=== PATIENT | male | born 1960 | race Caucasian/White ===

== ENCOUNTER 2023-09-23 08:14 | Outpatient (CLI) | payer MEDICARE, OTHER, SELFPAY ==
--- NOTE | ~2023-09-23 | XR_ITS ---
Right Hand Technique: PA, oblique, and lateral views were obtained. Clinical History: Pain Findings: No acute fracture or dislocation is seen. Osseous alignment is anatomic. Joint spaces are p reserved. Soft tissues are unremarkable. Impression: Unremarkable right hand. Reviewed, dictated and finalized at location M. Impression: Unremarkable right hand.
--- NOTE | ~2023-09-23 | XR_ITS ---
Left Hand Technique: PA, oblique, and lateral views were obtained. Clinical History: Pain Findings: No acute fracture or dislocation is seen. Osseous alignment is anatomic. Joint spaces are p reserved. Soft tissues are unremarkable. Impression: Unremarkable left hand. Reviewed, dictated and finalized at location M. Impression: Unremarkable left hand.
[2023-09-23 10:50] LABS: Erythrocyte Sedimentation Rate 17 mm/hr (0-20)
[2023-09-23 21:57] LABS: Rheumatoid Factor < 12.0 IU/ML (<12)
[2023-09-27 11:18] LABS: Anti Nuclear Antibody Pattern Nuclear, Homogeneous
== END 2023-09-23 08:15 | disposition home or self-care (01) ==
PROVIDERS: PCP Emergency Medicine; Visit Provider Emergency Medicine
DX: M25.541 Pain in joints of right hand (principal); M25.542 Pain in joints of left hand
CPT/HCPCS: 36415; 73130; 85652; 86038; 86039; 86430

== ENCOUNTER 2023-10-19 08:53 | Outpatient (CLI) | payer MEDICARE, OTHER, SELFPAY ==
--- NOTE | ~2023-10-19 | XR_ITS ---
Left foot Technique: AP, oblique, and lateral views were obtained. Clinical History: Toe injury Findings: There is acute minimally displaced fracture at the proximal shaft of the fifth proximal pha lanx. No other fracture identified.. Joint spaces are preserved without erosive or degenerative gomez e. Soft tissues are unremarkable. Impression: Acute fracture the fifth proximal phalanx, as detailed above. Reviewed, dictated and finalized at location . Impression: Acute fracture the fifth proximal phalanx, as detailed above.
== END 2023-10-19 08:54 | disposition home or self-care (01) ==
PROVIDERS: PCP Emergency Medicine; Visit Provider Emergency Medicine
DX: S92.512A Displaced fracture of proximal phalanx of left lesser toe(s), initial encounter for closed fracture (principal); X58.XXXA Exposure to other specified factors, initial encounter
CPT/HCPCS: 73630

== ENCOUNTER 2023-11-26 10:45 | Outpatient (CLI) | payer MEDICARE, OTHER, SELFPAY ==
--- NOTE | ~2023-11-26 | XR_ITS ---
EXAM: XR foot LT min 3V DATE: 11/26/2023 11:08 HISTORY: EVAL OF FRACTURE OF L 5TH TOE . COMPARISON: 10/19/2023. FINDINGS: Normal mineralization. Redemonstration of the comminuted intra-articular fracture of the p roximal aspect of the left proximal fifth phalange with early interval healing change and no change o f alignment. No new acute fracture or dislocation. No lytic or blastic lesion. Mild scattered degener ative change, most notably at the first MTP joint. No erosion or periosteal change. Soft tissues with in normal limits. IMPRESSION: Comminuted, likely intra-articular fracture of the proximal aspect of the left fifth prox imal phalange, in stable alignment, with early interval healing changes. Reviewed, dictated and finalized at location K. IMPRESSION: Comminuted, likely intra-articular fracture of the proximal aspect of the left fifth proximal phalange, in stable alignment, with early interval h ealing changes.
== END 2023-11-26 10:46 | disposition home or self-care (01) ==
LOC: ANHIMG 10:49
PROVIDERS: PCP Emergency Medicine; Visit Provider Emergency Medicine
DX: S92.512A Displaced fracture of proximal phalanx of left lesser toe(s), initial encounter for closed fracture (principal)
CPT/HCPCS: 73630

== ENCOUNTER 2024-06-26 08:31 | Outpatient (CLI) | payer MEDICARE, OTHER, SELFPAY ==
--- OUTSIDE RECORDS SUMMARY | 2024-06-26 08:39 | XMS_ITS | Clinical Summary ---
Author Organization [facility] [employer] Address [address] [place] [address] Care Team Providers Care Java Programming Professor Name Role Phone Unavailable Primary Care Provider Unavailabl e Source Comments [facility],non-owned Affiliates and Associated Physician Practices is amultiple site organization consisting of ambulatory clinics and hospital sitesin [place], [place], [place] and [place]. This disclosure is being madepursuant to the Care Everywhere program and may not contain all information available regarding this patient. Last updated 17.[facility] [employer] Allergies No known active allergies Medications * Be aware that medications may not be up to date on this document. Alwaysverify current medications with the patient. acetaminophen-c odeine (Tylenol #3) 300-30 MG tablet 03/14/2023 Active cetirizine (ZyrTEC) 10 MG tablet May cause drowsiness.Ob tain advice for OTCs. 04/28/2023 Active vitamin D3 (Cholecalcifero l) 25 MCG (1000 UNITS) tablet Take 2 (two) tablets by mouth once daily Active colesevelam (Welchol) 625 MG tablet Take with food/milk.Farhat e or use exactly as directed. 05/13/2023 Active esomeprazole (NexIUM) 40 MG capsule Take 1 (one) capsule by mouth once daily 05/24/2023 Active glucosamine 500 MG capsule Take 1,500 (one thousand five hundred) mg by mouth once daily Active Active Problems Problem Noted Date Diagnosed Date Bilateral hand pain (onset 06/2023) 10/06/2023 Overview (10/06/2023): Suspect early carpal tunnel syndrome. Recommend use of wrist splints as much as possible for 4 weeks. If not better then will order NCV nerve testing. Social History Tobacco Use Types Packs/Day Years Used Date Smoking Tobacco: Never Smokeless Tobacco: Never Tobacco Cessation:Counseling Given: Not Answered Alcohol Use Standard Drinks/Week Comments Not Currently 0 (1 standard drink = 0.6 oz pur e alcohol) Sex and Gender Information Value Date Recorded Sex Assigned at Not on file Legal Sex Male 2:22 PM CDT Gender Identity Not on file Sexual Orientation Not on file Last Filed Vital Signs Vital Sign Reading Time Taken Comments Blood Pressure 118/74 10/06/2023 12:39 PM CDT Pulse 74 10/06/2023 12:39 PM CDT Temperature - - Respiratory Rate - - Oxygen Saturation 98% 10/06/2023 12:39 PM CDT Inhaled Oxygen Concentration - - Weight 114.3 kg (252 lb) 10/06/2023 12:39 PM CDT Height 175.3 cm (5' 9 ) 10/06/2023 12:39 PM CDT Body Mass Index 37.21 10/06/2023 12:39 PM CDT Plan of Treatment Health Maintenance Due Date Last Done Comments COLOGUARD (AGES 45-75) - COLON CA SCREENING 1958 COLON MONITORING 1958 COLONOSCOPY - COLON CA SCREENING 1958 CT COLONOGRAPHY - COLON CA SCREENING 1960 Colorectal Cancer Screening 1958 FIT - COLON CA SCREENING 1958 FLEX SIG - COLON CA SCREENING 1958 LIPID TESTING 1958 MEDICARE AWV 12 MONTHS 1958 HIV SCREENING 1973 HEPATITIS C SCREENING 06/28/1976 DTAP/TDAP/TD VACCINES (1 - Tdap) 1977 PNEUMOCOCCAL VACCINE 50+ (1 of 1 - PCV) 2008 ZOSTER VACCINE (1 of 2) 2008 SCREENING FOR DIABETES 10/06/2023 COVID-19 VACCINE ( - season) 2023 11/06/2021, 05/07/2020, 04/15/2020 DEPRESSION SCREENING 02/15/2024 INFLUENZA VACCINE (Season Ended) 2024 03/06/2023, 11/16/2021, 11/22/2020, Additional history exists Respiratory Syncytial Virus (RSV) Vaccine Pt: or over 60 yrs (1 - 1-dose 75+ series) 2033 HEPATITIS B VACCINE Aged Out No longe r eligible based on patient's age to complete this topic HIB VACCINE Aged Out No longer eligi ble based on patient's age to complete this topic HPV VACCINE Aged Out No longer eligi ble based on patient's age to complete this topic MENINGOCOCCAL (Group B) VACCINE SHARED DECISION-MAKING Aged Out No longer eligible based on patient's age to complete this topic MENINGOCOCCAL GROUPS A/C/Y/W VACCINE Aged Out No longer eligible based on patient's age to complete this topic Insurance
--- OUTSIDE RECORDS SUMMARY | 2024-06-26 08:39 | XMS_ITS | Clinical Summary ---
Author Organization [facility] [place] [facility] Address [address] [place] [address] Care Team Providers Care Creche Attendant Name Role Phone Jesús Lara MD Primary Care Provider [phone] Allergies No known active allergies Medications No known medications Active Problems No known active problems Surgical History Surgery Date Site/Laterality Comments GALLBLADDER SURGERY Medical History Medical History Date Comments Gastric reflux Osteoarthritis Neuropathy Social History Tobacco Use Types Packs/Day Years Used Date Smoking Tobacco: Unknown Sex and Gender Information Value Date Recorded Sex Assigned at Not on file Legal Sex Male 4:22 AM CONSUMER LOAN OFFICER Gender Identity Not on file Sexual Orientation Not on file Obstetrics History Last Filed Vital Signs Vital Sign Reading Time Taken Comments Blood Pressure 122/74 08/12/2016 12:21 PM CDT Pulse 64 08/12/2016 12:21 PM CDT Temperature 36.4 C (97.6 F) 08/12/2016 12:21 PM CDT Respiratory Rate - - Oxygen Saturation 99% 08/12/2016 12:21 PM CDT Inhaled Oxygen Concentration - - Weight 115.7 kg (255 lb) 02/27/2024 11:30 AM CONSUMER LOAN OFFICER Height 175.3 cm (5' 9 ) 02/27/2024 11:30 AM CONSUMER LOAN OFFICER Body Mass Index 37.66 02/27/2024 11:30 AM CONSUMER LOAN OFFICER Plan of Treatment Health Maintenance Due Date Last Done Comments Colon Cancer Screening-Colonoscopy 1958 Depression Screening 1958 Fall Risk Assessment 1958 Hepatitis C Screening 1958 Prostate Cancer Screening-PSA 1958 DTaP/Tdap/Td Vaccine (1 - Tdap) 1969 Hepatitis B Screening 1976 Pneumococcal vaccine 65+ (1 of 1 - PCV) 2008 Abdominal Aortic Aneurysm (A AA) Screen 07/04/2023 03/17/2020 Well Visit 65+ 07/04/2023 Covid-19 Vaccine (6 - 2023-2 5 season) 2024 12/12/2023, 03/06/2023, 12/19/2020, Additional history exists Zoster Vaccine Completed 12/17/2018, 07/31/2018 Influenza Vaccine Completed 12/12/2023, , 11/16/2021, Additional history exists Insurance MEDICARE [facility] [employer] [facility] Care Teams Creche Attendant Relationship Specialty Start Date End Date Jesús Lara MD [address] [place] [address] PCP - General Emergency Medicine 11/29/23
--- OUTSIDE RECORDS SUMMARY | 2024-06-26 08:39 | XMS_ITS | Referral Summary ---
Author Organization [facility] [place] [facility] Address [address] [place] [address] Care Team Providers Care Pbx Installer Name Role Phone Jesús Lara MD Primary Care Provider [phone] Allergies No known active allergies Medications No known medications Active Problems No known active problems Social History Tobacco Use Types Packs/Day Years Used Date Smoking Tobacco: Unknown Sex and Gender Information Value Date Recorded Sex Assigned at Not on file Legal Sex Male 4:22 AM PATTERN WEAVER Gender Identity Not on file Sexual Orientation [...] 115.7 kg (255 lb) 02/27/2024 11:30 AM PATTERN WEAVER Height 175.3 cm (5' 9 ) 02/27/2024 11:30 AM PATTERN WEAVER Body Mass Index 37.66 02/27/2024 11:30 AM PATTERN WEAVER Plan of Treatment Not on file Insurance MEDICARE FOR LIFE Care Teams Pbx Installer Relationship Specialty Start Date End Date Jesús Lara MD [address] [place] [address] PCP - General Emergency Medicine 11/29/23
--- OUTSIDE RECORDS SUMMARY | 2024-06-26 08:39 | XMS_ITS | Clinical Summary ---
Author Organization [facility] Address [address] [place] [address] Care Team Providers Care Purifying Plant Operator Name Role Phone Jhony Ramos MD Primary Care Provider Allergies No known active allergies Medications Azelastine HCl 0.05 % Solution Place 1 drop into both eyes daily. 8 Active WELCHOL 625 MG tablet Take 1,250 mg by mouth 3 (three) times daily with meals. 8 Active NEXIUM 20 MG capsule Take 40 mg by mouth every morning before breakfast. 8 Active latanoprost 0.005 % ophthalmic solution Place 1 drop into both eyes nightly at bedtime. 8 Active triamcinolone 0.1 % creamIndicatio ns:NEW RX--HAS NOT PICKED UP 8 Active vitamin D3, cholecalcifero l, 1000 UNIT Tab tablet Take 2,000 Units by mouth daily. Active Vitamins-Lipot ropics (LIPOFLAVONOID OR) Take 2 tablets by mouth 3 (three) times daily with meals. Active Misc Natural Products (OSTEO BI-FLEX ADV JOINT SHIELD OR) Take 2 tablets by mouth daily with breakfast. Active glucosamine 500 MG capsule Take 1,500 mg by mouth daily with supper. Active probiotic capsule Take 1 capsule by mouth daily with breakfast. Active midodrine 5 MG tablet Take 5 mg by mouth see administration instructions. GIVE ONE TAB AT ONSET OF MIGRAINE, MAY TAKE AN ADDITIONAL 5 MG. ONE HOUR LATER. MAX DOSE 6 TABS PER DAY. Active albuterol sulfate HFA 108 (90 Base) MCG/ACT inhaler Inhale 2 puffs into the lungs every 6 (six) hours as needed for Wheezing or Shortness of breath. 18 g Active Family History Medical History Relation Comments Cancer Father Stroke Mother Relation Status Comments Father Mother Social History Tobacco Use Types Packs/Day Years Used Date Smoking Tobacco: Never Smokeless Tobacco: Never Alcohol Use Standard Drinks/Week Comments Not Currently 0 (1 standard drink = 0.6 oz pur e alcohol) Sex and Gender Information Value Date Recorded Sex Assigned at Not on file Legal Sex Male 9:15 PM CDT Gender Identity Not on file Sexual Orientation Not on file Last Filed Vital Signs Vital Sign Reading Time Taken Comments Blood Pressure 142/86 07/28/2021 12:23 PM CDT Pulse 72 07/28/2021 12:23 PM CDT Temperature 36.6 C (97.8 F) 07/28/2021 12:23 PM CDT Respiratory Rate 16 07/28/2021 12:23 PM CDT Oxygen Saturation 98% 07/28/2021 12:23 PM CDT Inhaled Oxygen Concentration - - Weight 115.2 kg (254 lb) 04/17/2020 2:49 PM DIVISION CHAIR Height 175.3 cm (5' 9 ) 04/17/2020 2:49 PM DIVISION CHAIR Body Mass Index 37.51 04/17/2020 2:49 PM DIVISION CHAIR Plan of Treatment Health Maintenance Due Date Last Done Comments Colorectal Cancer Screening Colonoscopy (10 Years) 1958 Hepatitis C 1976 DTaP, Tdap and Td Vaccines ( 1 - Tdap) 1977 Pneumococcal Vaccine: 50+ Years (1 of 1 - PCV) 2008 COVID-19 Vaccine ( - 2023-2 5 season) 2023 RSV Immunization or 60+ Years (1 - 1-dose 75+ series) 2033 Zoster Vaccines Completed 12/17/2018, 07/31/2018 Meningococcal B Vaccine Aged Out No l onger eligible based on patient's age to complete this topic Meningococcal Vaccine Aged Out No justus jackeline eligible based on patient's age to complete this topic RSV Immunizations Under 20 Months Aged Out No longer eligible b ased on patient's age to complete this topic Insurance Care Teams Purifying Plant Operator Relationship Specialty Start Date End Date Jhony Ramos MD [address] [address] [place] [id number] PCP - General FAMILY PRACTICE 03/05/20
[2024-06-26 09:37] LABS: Hematocrit 44.9 % (42.0-52.0); Hemoglobin 14.9 g/dL (14.0-18.0); Mean Corpuscular HGB Conc 33.2 g/dl (32-36); Mean Corpuscular Hemoglobin 29.4 pg (26-34); Mean Corpuscular Volume 88.7 fl (80-100); Mean Platelet Volume 9.4 fl (7.4-10.4); Platelet Count Result 162 k/mm3 (150-375); Red Blood Count 5.06 M/mm3 (4.6-6.20); Red Cell Distribution Width 13.9 % (11.5-14.5); White Blood Count 8.8 K/mm3 (4.5-10.0)
[2024-06-26 09:40] LABS: Add Urine Microscopic? NO; Appearance Urine Clear (Clear); Bilirubin Urine Negative (Negative); Blood Urine Negative (Negative); Color Urine Yellow (Yellow); Glucose Urine UA Negative (Negative); Ketones Urine Negative (Negative); Leukocyte Esterase Ur Negative LEU/UL (Negative); Nitrate Urine Negative (Negative); Protein Urine Negative (Negative); Specific Grav Ur 1.006 (1.001-1.035); Urobilinogen Urine 0.2 mg/dL (<2.0)
[2024-06-26 10:08] LABS: Hemoglobin A1C 5.1 % (<5.7)
[2024-06-26 10:26] LABS: Rubella IgG Antibody 27.9 IU/ML
[2024-06-26 10:28] LABS: MALB Creatinine Ratio < 10.9 mg/g (0-30); Microalbumin Urine Random < 6.0 mg/L (0-16.7)
[2024-06-26 11:08] LABS: Alanine Aminotransferase 31 U/L (6-50); Albumin Level 4.1 g/dL (3.5-5.1); Alkaline Phosphatase 75 U/L (38-126); Anion Gap 7 mmol/L (4-12); Aspartate Amino Transferase 38 U/L (17-59); Bilirubin,Total 1.4 mg/dL (0.2-1.3); Blood Urea Nitrogen 14 mg/dL (9-20); Calcium 8.9 mg/dL (8.4-10.2); Carbon Dioxide 24 mmol/L (22-30); Chloride 107 mmol/L (98-107); Cholesterol 171 mg/dL (0-200); Estimated Glomerular Filt Rate > 60; Glucose 103 mg/dL (65-110); HDL Direct 25 mg/dL; Potassium 3.9 mmol/L (3.4-5.0); Sodium 138 mmol/L (137-145); Triglycerides 228 mg/dL (<150)
[2024-06-26 11:19] LABS: LDL Cholesterol Direct 89 mg/dL
[2024-06-26 11:24] LABS: Free T4 Free Thyroxine 1.19 ng/dL (0.78-2.19)
[2024-06-26 11:39] LABS: Thyroid Stimulating Hormone 0.875 uIU/mL (0.465-4.680)
[2024-06-26 12:41] LABS: Prostate Specific Antigen 0.3 ng/mL (< OR = 4.0)
[2024-07-01 12:24] LABS: Testosterone Free 26.5 pg/mL (35.0-155.0); Testosterone Total 114 ng/dL (250-1100)
== END 2024-06-26 08:32 | disposition home or self-care (01) ==
PROVIDERS: PCP Emergency Medicine; Visit Provider Emergency Medicine
DX: E78.5 Hyperlipidemia, unspecified (principal); Z12.5 Encounter for screening for malignant neoplasm of prostate
CPT/HCPCS: 36415; 80053; 80061; 81003; 82043; 83036; 84153; 84402; 84403; 84439; 84443; 85027; 86735; 86762; 86765; G0103

== ENCOUNTER 2025-02-08 05:53 | Outpatient (CLI) | payer MEDICARE, OTHER, SELFPAY ==
--- OUTSIDE RECORDS SUMMARY | 2025-02-08 05:58 | XMS_ITS | Clinical Summary ---
Author Organization [facility] Address [address] [place] [address] Care Team Providers Care Machine Attendant Name Role Phone Jesús Lara MD Primary Care Provider [phone] Allergies No known active allergies Medications No known medications Active Problems No known active problems Surgical History Surgery Date Site/Laterality Comments GALLBLADDER SURGERY Medical History Medical History Date Comments Gastric reflux Osteoarthritis Neuropathy Social History Tobacco Use Types Packs/Day Years Used Date Smoking Tobacco: Unknown Sex and Gender Information Value Date Recorded Sex Assigned at Not on file Legal Sex Male 4:22 AM DOCUMENT PROCESSOR Gender Identity Not on file Sexual Orientation [...] 115.7 kg (255 lb) 02/27/2024 11:30 AM DOCUMENT PROCESSOR Height 175.3 cm (5' 9) 02/27/2024 11:30 AM DOCUMENT PROCESSOR Body Mass Index 37.66 02/27/2024 11:30 AM DOCUMENT PROCESSOR Plan of Treatment Health Maintenance Due Date [...] Visit 65+ 07/04/2023 Covid-19 Vaccine (6 - 2024-2 6 season) 2024 12/12/2023, 03/06/2023, 12/19/2020, Additional history exists Influenza Vaccine (#1) 2024 , 03/06/2023, 11/16/2021, Additional history exists Zoster Vaccine Completed 12/17/2018, 07/31/2018 Insurance MEDICARE [facility] [facility] Care Teams Machine Attendant Relationship Specialty Start Date End Date Jesús Lara MD [address] [place] [address] PCP - General Emergency Medicine 11/29/23
--- OUTSIDE RECORDS SUMMARY | 2025-02-08 05:58 | XMS_ITS | Clinical Summary ---
Author Organization [facility] Address [address] [place] [address] Care Team Providers Care Dining Room Manager Name Role Phone Unavailable Primary Care Provider Unavailabl e Source Comments [facility],non-owned Affiliates and Associated Physician Practices is amultiple site organization consisting of ambulatory clinics and hospital sitesin [place] and [place]. This disclosure is being madepursuant to the Care Everywhere program and may not contain all information available regarding this patient. Last updated 17.[facility] Allergies No known active allergies Medications * [...] 12:39 PM CDT Height 175.3 cm (5' 9) 10/06/2023 12:39 PM CDT Body Mass Index [...] TESTING 1960 MEDICARE AWV 12 MONTHS 1958 HEPATITIS C SCREENING 06/28/1976 DTAP/TDAP/TD VACCINES (1 - Tdap) 1977 PNEUMOCOCCAL VACCINE 50+ (1 of 1 - PCV) 2008 ZOSTER VACCINE (1 of 2) 2008 SCREENING FOR DIABETES 10/06/2023 DEPRESSION SCREENING 02/15/2024 COVID-19 VACCINE ( - 2024- season) 2024 11/06/2021, 05/07/2020, 04/15/2020 INFLUENZA VACCINE (#1) 2024 , 11/16/2021, 11/22/2020, Additional history exists Respiratory Syncytial [...] patient's age to complete this topic Insurance MEDICARE
--- OUTSIDE RECORDS SUMMARY | 2025-02-08 05:58 | XMS_ITS | Clinical Summary ---
Author Organization [facility] Address [address] [place] [address] Care Team Providers Care Test Borer Name Role Phone Jhony Ramos MD Primary [...] or Shortness of breath. 18 g Active Encounters Date Type Department Care Team Description 12/22/2024 6:43 AM SHOOTER'S HELPER - 12/22/2024 11:59 PM SHOOTER'S HELPER Hospital Encounter [facility] [place] [address] Natasha Land MD Discharge Disposition: Home or Self Care (Routine Discharge) 12/22/2024 Travel from Last 3 Months Family History Medical History Relation Comments Cancer Father Stroke Mother Relation Status Comments Father Mother Social History Tobacco Use Types Packs/Day Years Used Date Smoking Tobacco: Never Smokeless Tobacco: Never Alcohol Use Standard Drinks/Week Comments Not Currently 0 (1 standard drink = 0.6 oz pur e alcohol) Sex and Gender Information Value Date Recorded Sex Assigned at Male 07/10/2024 6:57 AM CDT Legal Sex Male 9:15 PM CDT Gender [...] 115.2 kg (254 lb) 04/17/2020 2:49 PM SHOOTER'S HELPER Height 175.3 cm (5' 9) 04/17/2020 2:49 PM SHOOTER'S HELPER Body Mass Index 37.51 04/17/2020 2:49 PM SHOOTER'S HELPER Plan of Treatment Health Maintenance Due Date Last Done Comments Colorectal Cancer Screening Colonoscopy (10 Years) 1960 Hepatitis C 1976 DTaP, Tdap and Td Vaccines (1 - Tdap) 1977 Hepatitis A Vaccines (1 of 2 - Risk 2-dose series) 1977 Pneumococcal Vaccine: 50+ Years (1 of 1 - PCV) 2008 RSV Immunization or 60+ Years (1 - Risk 60-74 years 1-dose series) 2018 Annual Medicare Wellness Visit 07/04/2023 COVID-19 Vaccine ( season) 2024 12/12/2023, 03/06/2023, 11/06/2021, Additional history exists Influenza Adult (#1) 2024 12/12/2023, 03/06/2023, 11/16/2021, Additional history exists Zoster Vaccines Completed 12/17/2018, 07/31/2018 Meningococcal B Vaccine Aged Out No l onger eligible based on patient's age to complete this topic Meningococcal Vaccine Aged Out No justus jackeline eligible based on patient's age to complete this topic RSV Immunizations Under 20 Months Aged Out No longer eligible based on patient's age to complete this topic Procedures Procedure Name Priority Date/Time Associated Diagnosis Comments MRI ABD WWO CON Routine 12/22/2024 7:38 AM SHOOTER'S HELPER Liver lesion Abnormal finding on imaging of liver from Last 3 Months Results * MRI ABD WWO CON (12/22/2024 7:38 AM SHOOTER'S HELPER) Anatomical Region Laterality Modality Abdomen Magnetic Resonan ce 12/30/2024 7:03 PM SHOOTER'S HELPER Impressions 12/30/2024 7:19 PM SHOOTER'S HELPER IMPRESSION: 1. No significant change in hepatic cysts dating back to 2020. No further imaging follow-up is indicated. 2. Hepatic steatosis. 3. Hepatosplenomegaly. Referred By: NATASHA LAND Interpreted By: Nanda Lund DO, 12/30/2024 7:03 PM Narrative 12/30/2024 7:19 PM SHOOTER'S HELPER [facility] [address] [place], [place] [address] MRI ABD WWO CON: 12/22/2024 6:58 AM CLINICAL INFORMATION: Liver lesion COMPARISON: CT abdomen/pelvis with 03/17/2020. Technique: Multiplanar multisequence MR images of abdomen were obtained prior to and after administration of intravenous 20 mL Dotarem gadolinium contrast. FINDINGS: Lung bases: Grossly normal. Liver: Enlarged. Nonenhancing, septated hepatic cysts measuring up to 2.0 cm within the right hepatic dome and 6.5 cm within the left hepatic lobe (use measured 2.4 cm and 6.[address]). A couple of additional smaller, simple appearing, subcentimeter, nonenhancing cysts. No diffusion restriction. Significant signal dropout on out of phase imaging. Biliary tree: No intrahepatic biliary dilation. A couple of dilated biliary ducts peripheral to large left cyst. Common bile duct measures 0.8 cm. No filling defects in the biliary tree. Gallbladder: Post cholecystectomy. Pancreas: Normal. Spleen: Enlarged measuring 16.6 cm on axial imaging. Right adrenal gland: Normal. Left adrenal gland: Normal. Right kidney: No hydronephrosis or hydroureter. Left kidney: No hydronephrosis or hydroureter. Vessels: No abdominal aortic aneurysm. Major veins of abdomen are patent. Lymphadenopathy: None. Free fluid: None. Bowel: No dilated bowel. Scattered diverticuli. Bones and soft tissues: Partially imaged, moderate sized fat-containing umbilical hernia Procedure Note Nanda Lund, - 12/30/[address] [address] MRI ABD WWO CON: 12/22/2024 6:58 AM CLINICAL INFORMATION: Liver lesion COMPARISON: CT abdomen/pelvis with 03/17/2020. Technique: Multiplanar multisequence MR images of abdomen were obtainedprior to and after administration of intravenous 20 mL Dotarem gadoliniumcontrast. FINDINGS: Lung bases: Grossly normal. Liver: Enlarged. Nonenhancing, septated hepatic cysts measuring up to 2.0cm within the right hepatic dome and 6.5 cm within the left hepatic lobe(use measured 2.4 cm and 6.[address]). A couple ofadditional smaller, simple appearing, subcentimeter, nonenhancing cysts.No diffusion restriction. Significant signal dropout on out of phaseimaging. Biliary tree: No intrahepatic biliary dilation. A couple of dilatedbiliary ducts peripheral to large left cyst. Common bile duct measures0.8 cm. No filling defects in the biliary tree. Gallbladder: Post cholecystectomy. Pancreas: Normal. Spleen: Enlarged measuring 16.6 cm on axial imaging. Right adrenal gland: Normal. Left adrenal gland: Normal. Right kidney: No hydronephrosis or hydroureter. Left kidney: No hydronephrosis or hydroureter. Vessels: No abdominal aortic aneurysm. Major veins of abdomen arepatent. Lymphadenopathy: None. Free fluid: None. Bowel: No dilated bowel. Scattered diverticuli. Bones and soft tissues: Partially imaged, moderate sized fat-containingumbilical hernia IMPRESSION: 1. No significant change in hepatic cysts dating back to 2020. Nofurther imaging follow-up is indicated. 2. Hepatic steatosis. 3. Hepatosplenomegaly. Referred By: NATASHA LAND Interpreted By: Nanda Lund DO, 12/30/2024 7:03 PM us Natasah Land MD MRI Final Result from Last 3 Months Insurance MEDICARE [facility] [place] Care Teams Test Borer Relationship Specialty Start Date End Date Jhony Ramos MD 3 [facility] [address] [place] [address] PCP - General FAMILY PRACTICE 03/05/20
[2025-02-08 10:16] LABS: Hematocrit 45.9 % (42.0-52.0); Hemoglobin 15.6 g/dL (14.0-18.0); Immature Granulocyte Percent A 0.5 % (0-0.5); Lymphocytes Absolute Auto 1.35 K/mm3 (0.9-3.2); Mean Corpuscular HGB Conc 34.0 g/dl (32-36); Mean Corpuscular Hemoglobin 29.7 pg (26-34); Mean Corpuscular Volume 87.4 fl (80-100); Nucleated Red Blood Cells Absolute Auto 0.000 K/mm3 (0.0-0.012); Nucleated Red Blood Cells Perc 0.0 % (0.0-0.2); Platelet Count Result 168 k/mm3 (150-375); Red Blood Count 5.25 M/mm3 (4.6-6.20); White Blood Count 9.4 K/mm3 (4.5-10.0)
== END 2025-02-08 05:54 | disposition home or self-care (01) ==
PROVIDERS: PCP Emergency Medicine; Visit Provider Surgery
DX: K46.9 Unspecified abdominal hernia without obstruction or gangrene (principal); K43.2 Incisional hernia without obstruction or gangrene
CPT/HCPCS: 36415; 85025; 86850; 86900; 86901

== ENCOUNTER 2025-02-13 00:36 | Day surgery (SDC) | payer MEDICARE, OTHER, SELFPAY ==
--- OUTSIDE RECORDS SUMMARY | 2024-06-15 09:00 | XMS_ITS ---
Author Name [facility] [place] [facility] [place] Address [address] [place] [address] Care Team Providers Care Telecommunicator Supervisor Name Role Phone HEDY BYERS Primary Care Provider Unavailabl e Insurance Providers: All historical and current Section Date Range: From patient's date of to the date document was created. This section includes the names of all active insurance providers for the patient. Insurance Provider Type of Coverage Plan Name Start of Policy Coverage End of Policy Coverage Group Number Member ID Insurance Provider's Telephone Number Policy Melendez's Name Patient's Relationship to Policy Melendez MEDICARE (WNR) MEDICARE (M) PART B June 15, 2023 PART B [id number] Wilmar LAMAS PATIENT MEDICARE (WNR) MEDICARE (M) PART A June 15, 2023 PART A [id number] Wilmar LAMAS PATIENT Selected Encounter This section includes the information on record at [place] for the Encounter. 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 Date/Time Primary/Secondary Diagnosis Diagnosis Name Provider Source June 15, 2024 03:13 PM PRIMARY Pigmentary glaucoma, right eye, mild stage SIXTO VIEYRA SA Carlos CASAREZ [facility] Plan of Treatment: Future Appointments (+ 6 months) and Future Tests (+/- 45 days) The Plan of Treatment section includes future care activities for the patient from all [place] treatmentfacilities. This section includes future appointments and future orders which are active, pending or scheduled. Future Appointments This section includes appointments that were scheduled to occur 6 months from the date of the Encounter, up to a maximum of 20 appointments. The data comes from all [place] treatment facilities. Appointment Date/Time Appointment Type Appointme nt Facility Name Aug 30, 2024 10:30 AM [facility]UL[facility]ORY [facility] Sep 19, 2024 03:30 PM AMBULATORY - MEDICINE [facility] Oct 12, 2024 11:00 AM AMBULATORY - SURGERY [facility] Nov 06, 2024 03:00 PM AMBULATORY - MEDICINE [facility] Dec 11, 2024 02:00 PM AMBULATORY - MEDICINE [facility] Encounter Notes: All associated encounter notes This section contains the clinical notes associated to the Encounter. Date/Time Encounter Note(s) Provider Source June 15, 2024 03:00 PM OPHTHALMOLOGY NOTE : LOCAL TITLE: OPHTHALMOLOGY NOTE ST STANDARD TITLE: OPHTHALMOLOGY NOTE DATE OF NOTE: JUNE 15, 2024@15:00 ENTRY DATE: JUNE 15, 2024@15:00:38 AUTHOR: VEE VIEYRA EXP COSIGNER: URGENCY: STATUS: COMPLETED TESTING OBTAINED: OCT complete OU (MACULA & ONH) Results located in Forum for provider review INITIAL EYE SCREEN LAST VISIT: 10/21/2023 CHIEF COMPLAINT: Pt state no new complaints. Here for DFEx and OCT. 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
--- OUTSIDE RECORDS SUMMARY | 2024-06-15 09:00 | XMS_ITS | Encounter Summary ---
Author Name [facility] Organization [facility] [place] Address [address] [place] [address] Care Team Providers Care Manager Building Name Role Phone HEDY BYERS Primary Care [...] PART B June 15, 2023 PART B [id number] Wilmar LAMAS PATIENT MEDICARE (WNR) MEDICARE (M) PART A June 15, 2023 PART A [id number] Wilmar LAMAS PATIENT Selected Encounter This section includes the information on record at [place] for the Encounter. Date/Time Encounter Type Encounter Description Reason Provider Source June 15, 2024 03:00 PM OFFICE O/P EST HI 40 MIN OPHTHALMOLOGY ICD-10-CM 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, left eye, severe stage GEORGE,ALIDA S B III [facility] Encounter Template Text not used by [facility] Assessments - Encounter Diagnoses This section includes the primary and secondary diagnoses documented for the Encounter. Date/Time Primary/Secondary Diagnosis Diagnosis Name Provider Source June 15, 2024 03:40 PM PRIMARY Pigmentary glaucoma, left eye, severe stage GEORGEROSI Becker III [facility] June 15, 2024 03:40 PM SECONDARY Age-related nuclear cataract, bilateral GEORGE,ROSI Segovia [facility] June 15, 2024 03:40 PM SECONDARY Pigmentary glaucoma, right eye, mild stage GEORGE,ROSI Segovia [facility] Plan of Treatment: Future Appointments (+ 6 months) and Future Tests (+/- 45 days) The Plan of Treatment section includes future care activities for the patient [facility] [place] [facility]. This section includes future appointments and future orders which are active, pending or scheduled. Future Appointments This section includes appointments that were scheduled to occur 6 months from the date of the Encounter, up to a maximum of 20 appointments. The data comes from all [place] treatment facilities. Appointment Date/Time Appointment Type Appointme nt Facility Name Aug 30, 2024 10:30 AM AM[facility]ULATORY - [facility] Sep 19, 2024 03:30 PM AMBULATORY - MEDIC[facility] Oct 12, 2024 11:00 AM AMBULATORY - SURGERY [facility] Nov 06, 2024 03:00 PM AMBULATORY - MEDICINE [facility] Dec 11, 2024 02:00 PM AMBULATORY - MEDICINE [facility] Encounter Notes: All associated encounter notes This section contains the clinical notes associated to the Encounter. Date/Time Encounter Note(s) Provider Source June 15, 2024 03:16 PM OPHTHALMOLOGY CONS ULT: LOCAL TITLE: OPHTHALMOLOGY CONSULT ST STANDARD TITLE: OPHTHALMOLOGY CONSULT DATE OF NOTE: JUNE 15, 2024@15:16 ENTRY DATE: JUNE 15, 2024@15:16:22 AUTHOR: ROSI GEORGE II EXP COSIGNER: URGENCY: STATUS: COMPLETED Glaucoma clinic Here for dilated exam Vision stable = Drops: Cosopt BID OS Xalatan OU qhs = NFL (05/06/23) OD: temporal thinning (++ superior and nasal blocking) avg ?? CDR: 0.74 OS: severe polar thinning>temporal thinning avg 57 CDR: 0.86 NFL (05/06/23) OD: Mild inf (y89) avg 77 CDR: 0.74 OS: severe polar thinning>temporal thinning avg 56 CDR: 0.83 ===== HVF (11/20/21): OD: nt OS: dense SA - stable compared to prior but progression compared to 2018 HVF(11/04/22): OD full OS stable SA HVF 10/21/23 OD: nonspecific central defects OS: dense superior arcuate; seems worse from 2022 but stable from 2021 - likely stable = BCVA: 20/25 OU Pupils Dilated OU (prior: 6-2; 6-3 (irregular) + APD OS) Tap Date: O.D. O.S. Time 08/29/17 21 23 1047 01/30/18 21 22 1100 - Xalatan, Timolol 10/30/18 22 22 1111 - Xalatan 01/15/20 23 23 1147 - XAL QHS ou 03/24/20 21 25 1115 - XAL QHS ou 07/31/21 18 17 1445 - XAL QHS ou 09/03/21 19 16 xal qhs ou SLT OS 10/15/21 12 19 xal qhs ou 11/20/21 20 17 xal qhs ou 02/12/22 15 16 xal qhs ou SLT OS 05/10/22 . 18 18 xal qhs ou OMNI-GATT OS 07/16/22 18 12 Xal OU+Cos2/Brim2 OS + PF OS BID 08/05/22 14 13 Xal OU+Cos2/Brim2 OS + PF OS BID 11/04/22 15 10 Xal OU, Cos2/Brim3 OS 12/31/22 14 9 Xal OU, Cos2/Brim3 OS 05/06/23 13.5 11 Xal OU, Cos2/brim3 OS 09/23/23 14 12 Xal OU, Cos2/brim3 OS 10/21/23 16 12 Xal OU, Cos2 OS 06/15/24 15 13 Xal OU, Cos2 OS SLEx: Conj: tr inj, ping OD 1-2+ inj, follicles, ping OS Cornea: K spindleOU OU AC: deep, quiet ou Iris: normal OD, oval irregular pupil OS; mid periphery TIDs OS>OD Lens: 1+ns OU DFEx CDR: 0.75/0.85 Minimal macular RPE changes OU Periphery OK (?low IT schisis OU) - no holes or breaks Mac OCT (06/15/24): wnl OU 63 year old with... # pigmentary glaucoma OS>OD: mild OD, severe OS - Pt [facility]rs[facility] - Self reports Tmax ~40. - CCT 554/557 by ant seg OCT 01/2018 - s/p SLT OS 09/03/21 and again 03/29/22 without meaningful effect - s/p OMNI-GATT OS 06/18/22 - IOP stable on 1 class OD and 4 classes OS - Possible brimonidine intolerance (irritation, but not well documented) - HVF with dense sup arcuate OS stable from 2021, full OD - RNFL stable today - CPM with lat qhs OU; Cos BID OS - Recheck in 4 months with HVF - If worse, may need filter (likely trab), but would re-try brimonidine (SLT not helpful in the past) before trab # Nuclear sclerosis OU - Reports glare and halos at night, but not interested in CE at this time - Follow # Allergic conjunctivitis - Continue ketotifen BID prn # RE/P - Keep current RTC 4 months with HVF /dustin/ Nely George III MD Staff Physician, Ophthalmology Signed: 06/15/2024 15:40 ROSI GEORGE III [facility]
--- OUTSIDE RECORDS SUMMARY | 2024-10-12 05:00 | XMS_ITS | Encounter Summary ---
Author Name [facility] [place] [facility] [place] Organization [facility] [facility] [place] Address [address] [place] [address] Care Team Providers Care Chief Console Operator Name Role Phone HEDY BYERS Primary Care [...] Policy Melendez MEDICARE (WNR) MEDICARE (M) PART A June 15, 2023 PART A [id number] Wilmar LAMAS PATIENT MEDICARE (WNR) MEDICARE (M) PART B June 15, 2023 PART B [id number] Wilmar LAMAS PATIENT Selected Encounter This section includes the information on record at [place] for the Encounter. 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 Date/Time Primary/Secondary Diagnosis Diagnosis Name Provider Source Oct 12, 2024 11:36 AM PRIMARY Pigmentary glaucoma, left eye, severe stage GEORGE,ROSI [facility] Oct 12, 2024 11:36 AM SECONDARY Pigmentary glaucoma, right eye, mild stage GEORGE,ROSI [facility] Plan of Treatment: Future Appointments (+ 6 months) and Future Tests (+/- 45 days) The Plan of Treatment section includes future care activities for the patient from all [place] [facility]facild[facility]. This section includes future appointments and future orders which are active, pending or scheduled. Future Appointments This section includes appointments that were scheduled to occur 6 months from the date of the Encounter, up to a maximum of 20 appointments. The data comes from all [facility]. Appointment Date/Time Appointment Type Appointme nt Facility Name Nov 06, 2024 03:00 PM AMBULATORY - MEDICINE [facility] Dec 11, 2024 02:00 PM AMBULATORY - MEDICINE [facility] Jan 07, 2025 02:00 PM AMBULATORY - MEDICINE [facility] Feb 25, 2025 10:00 AM AMBULATORY - MEDICINE [facility] Apr 05, 2025 01:00 PM AMBULATORY - MEDICINE [facility] Apr 11, 2025 01:00 PM AMBULATORY - SURGERY [facility] Active, Pending, and Scheduled Orders This section includes a listing of several types of active, pending, and scheduled orders, including clinic medications orders, diagnostic test orders, procedure orders and consult orders; where the start date of the order is 45 days before the date of the Encounter or 45 days after the date of theEncounter. The data comes from all [facility]. Test Date/Time Test Type Test Details Facility Name Sep 19, 2024 12:00 AM Laboratory - Chemistry Order PROST. SPECIFIC AG.(PB-STL) GOLD/RED SST SERUM [facility] Sep 19, 2024 12:00 AM Laboratory - Chemistry Order [id number] BLOOD [facility] Sep 19, 2024 12:00 AM Laboratory - Chemistry Order TSH ([place]-PB) GOLD/RED SST [facility] Sep 19, 2024 12:00 AM Laboratory - Chemistry Order COMPREHENSIVE METABOLIC PANEL GREEN LI/HEP BLD/PLAS PLASMA SP [facility] Sep 19, 2024 12:00 AM Laboratory - Chemistry Order CBC BLOOD SP [facility] Sep 19, 2024 12:00 AM Laboratory - Chemistry Order LIPID PANEL (STL) GREEN LI/HEP BLD/PLAS PLASMA SP ONCE [facility] Encounter Notes: All associated encounter notes This section contains the clinical notes associated to the Encounter. Date/Time Encounter Note(s) Provider Source Oct 12, 2024 11:10 AM OPHTHALMOLOGY NOTE : LOCAL TITLE: OPHTHALMOLOGY NOTE STL STANDARD TITLE: OPHTHALMOLOGY NOTE DATE OF NOTE: OCT 12, 2024@11:10 ENTRY DATE: OCT 12, 2024@11:11 AUTHOR: ROSI GEORGE II EXP COSIGNER: URGENCY: STATUS: COMPLETED Glaucoma clinic Here for F Vision stable = Drops: Cosopt BID OS Xalatan OU qhs Olopatadine PRN = NFL (05/06/23) OD: temporal thinning (++ [...] likely stable = BCVA: 20/25 OU Pupils 6-2; 6-3 (irregular) + APD OS Tap Date: O.D. O.S. Time 08/29/17 1047 01/30/18 1100 - Xalatan, Timolol 10/30/18 22 22 [...] 06/15/24 15 13 Xal OU, Cos2 OS 10/12/24 18 14 Xal OU, Cos2 OS SLEx: Conj: tr inj, ping OD 1-2+ inj, follicles, ping OS Cornea: K spindle OD>>OS OU AC: deep, quiet ou Iris: normal OD, oval irregular pupil OS; mid periphery TIDs OS>OD Lens: 1+ns OU Fundus (last DFEx 06/15/24) CDR: 0.75/0.85 Mac OCT (06/15/24): wnl OU 64 year old with... # pigmentary glaucoma OS>OD: mild OD, severe OS - Pt has been [facility] yrs[facility] - Self reports Tmax ~40. - Tmax here - CCT 554/557 by ant seg NOV 2501/2018 - s/p SLT OS 09/03/21 and again 03/29/22 without meaningful effect - s/p OMNI-GATT OS 06/18/22 - IOP stable on 1 class OD and 3 classes OS - Possible brimonidine intolerance (irritation, but not well documented) - HVF stable dense sup arcuate OS, full OD - RNFL stable - IOP a bit higher OU, but likely still OK - CPM with lat qhs OU; Cos BID OS - Recheck in 6 months with OCT - Contingency OD -- brim or SLT (more TM pigment OD, so SLT more likely to work OD c/w OS) - Contingency OS -- brim or trab # Nuclear sclerosis OU - Reports glare and halos at night, but not interested in CE at this time - Follow # Allergic conjunctivitis - Continue ketotifen BID prn # RE/P - Keep current RTC 6 months with DFEx/OCT /dustin/ Nely George III MD Staff Physician, Ophthalmology Signed: 10/12/2024 11:37 ROSI GEORGE III [facility]
--- OUTSIDE RECORDS SUMMARY | 2024-11-06 09:00 | XMS_ITS | Encounter Summary ---
Author Name [facility] [place] Organization [facility] [place] Address [address], [place] [address] Care Team Providers Care Landscape Crew Leader Name Role Phone HEDY BYERS Primary Care [...] PART B June 15, 2023 PART B [id number] Wilmar LAMAS PATIENT MEDICARE (WNR) MEDICARE (M) PART A June 15, 2023 PART A [id number] Wilmar LAMAS PATIENT Selected Encounter This section includes the information on record at [place] for the Encounter. Date/Time Encounter Type Encounter Description Reason Provider Source Nov 06, 2024 03:00 PM PSYTX W PT 30 MINUTES PCMHI INDIV ICD-10-CM F41.9 Anxiety disorder, unspecified RAYMONDSHYANNE HORTON IHE Encounter Template Text not used by [facility] Assessments - Encounter Diagnoses This section includes the primary and secondary diagnoses documented for the Encounter. Date/Time Primary/Secondary Diagnosis Diagnosis Name Provider Source Nov 06, 2024 02:49 PM PRIMARY Anxiety disorder, unspecified SHYANNE ANDRADE [facility] Plan of Treatment: Future Appointments (+ 6 months) and Future Tests (+/- 45 days) The Plan of Treatment section includes future care activities for the patient from all [place] treatmentfacilities. This section includes future appointments and future orders which are active, pending or scheduled. Future Appointments This section includes appointments that were scheduled to occur 6 months from the date of the Encounter, up to a maximum of 20 appointments. The data comes from all [place] treatment facilities. Appointment Date/Time Appointment Type Appointme nt Facility Name Dec 11, 2024 02:00 PM AMBULATORY - MEDICINE [facility] Jan 07, 2025 02:00 PM AMBULATORY - MEDICINE [facility] Feb 25, 2025 10:00 AM AMBULATORY - MEDICINE [facility] Apr 05, 2025 01:00 PM AMBULATORY - MEDICINE [facility] Apr 11, 2025 01:00 PM AMBULATORY - SURGERY [facility] Social History: Smoking Status (Most current) and Tobacco Use (All prior to encounter date) This section includes the most current, and the historical, smoking and tobacco- related health factors from the [place] facility where the Encounter took place. Current Smoking Status This section includes the most current smoking, or tobacco-related health factor, from the [place] facility where the Encounter took place. Date/Time Current Smoking Status Comment Norah herrera Dec 12, 2023 11:30 AM [place]-TOBACCO NEVER USED [facility] Tobacco Use History This section includes a history of the smoking, or tobacco-related health factors, that were collected on or before the date of the Encounter. The data comes from the [place] facility where the Encounter took place. Date/Time Smoking Status/Tobacco Use Comment F acility Jul 22, 2022 02:00 PM VA-TOBACCO NEVER USED [facility] June 27, 2020 10:00 AM VA-TOBACCO NEVER USED [facility] Sep 15, 2018 10:33 AM VA-TOBACCO NEVER USED [facility] Jan 27, 2018 10:23 AM [place]-TOBACCO NEVER USED [facility] Encounter Notes: All associated encounter notes This section contains the clinical notes associated to the Encounter. Date/Time Encounter Note(s) Provider Source Nov 06, 2024 02:36 PM MENTAL HEALTH CONS ULT: LOCAL TITLE: PRIMARY CARE MENTAL HEALTH INTEGRATION CONSULT STANDARD TITLE: MENTAL HEALTH CONSULT DATE OF NOTE: NOV 06, 2024@14:36 ENTRY DATE: NOV 06, 2024@14:36:53 AUTHOR: SHYANNE ANDRADE COSIGNER: URGENCY: STATUS: COMPLETED PRIMARY CARE-MENTAL HEALTH INTEGRATION (PC-MHI) FUNCTIONAL ASSESSMENT NAME: ORLANDO LAMAS DATE OF : June DIAGNOSIS BEING TREATED: anxiety d/o NOS CPT Code: [id number] Length of Visit: 30 minutes SERVICE CONNECTION: Service Connected: 70% Rated Disabilities: GLAUCOMA (10% SC) MIGRAINE HEADACHES (30% SC) 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 Informed Consent: At the outset of appt, Dawson and provider collaboratively discussed the purpose of appt, the limits of confidentiality, as well as the potential risk, benefits, and complications of participating in voluntary treatment. The Dawson expressed understanding and consented to participate in services. Clinical Reminders are Due: No REASON FOR REFERRAL: PCP, HEDY BYERS referred this patient to Primary Care Psychology for a brief behavioral health assessment to address issues related to: anxiety PRESENTING PROBLEM(Detail symptoms): - Vet is moravian, has peace and nelly - Vet has panic attacks and anxiety surrounding his physical health - He experiences cold sweat, feels nausea, has to go to the bathroom, heart racing, has to lie down and take deep breaths, feels overly warm PROBLEM HISTORY(Duration/Frequency/I ntensity): ongoing for years TREATMENT HISTORY OF PROBLEM: - Hospitalizations: Denies prior inpatient hospitalizations for psychiatric reasons - Medications: Aruna trialed Prozac years ago which was helpful, trialed this again recently but had a bad reaction - Psychotherapy: Aruna has engaged in psychotherapy in the past HOW PRESENTING PROBLEM IMPACTS THE FOLLOWING: -Sleep: inadequate, feels wound up but gets about 6 hours, naps in the mornings -Work/School: 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 Will be administered at follow up sessions. LETHALITY ASSESSMENT -Have you wished you were or wished you could go to sleep and not wake up? No -Have you had actual thoughts of killing yourself? No -Have you ever done anything, started to do anything, or prepared to do anything to end your life?: No -Any history of violence: No -Any current HI or aggressive urges: No -Any current concerns related to abuse, neglect, exploitation, and interpersonal violence: No -Risk Factors: Current Mental health condition/ symptoms -Protective Factors: Absence of SI, intent, or plan, no history of SI, suicide attempts, or self-harm behavior Family support Several stated reasons for living Spiritual beliefs Work responsibilities Plans for the future Willingness to engage in treatment -Risk level: [X]LOW [ ]MODERATE [ ]HIGH -CLINICAL JUDGMENT AND DISPOSITION: In consideration of relevant risk and protective factors, the did NOT appear to be at imminent risk for suicide or homicide at this time and IS sustainable at the current level of care. -Comments: MENTAL STATUS: [X] Within normal limits [ ] Other: ASSIST PHASE: Dawson was provided with tools for self-management including: [X] Handouts on: anxiety [ ] Online resources for: [ ] Skills training in: [x] Education regarding: MH treatment options GOALS FOR TX: [ ] The following goals were developed using shared decision-making with input by the Dawson: [x] Tx goals will be determined at follow up sessions. [ ] Tx goals will be determined by TRP/ BHIP. IMPRESSIONS: ORLANDO LAMAS is a 64-year old WHITE MALE Dawson with a history of anxiety. Today, reported to show card writer that he experiences anxiety and panic symptoms in the context of physical ailments. Donnat trialed FLUOXETINE recently, but had a poor response. Ship Carpenter provided information about mental health tx options (e.g., PCMHI, MHC, TRP). Using shared decision- making, Vet will be seen in [facility] for psychotherapy. Dawson consented to participate in this treatment plan. PLAN OF CARE: The following plan was developed collaboratively with the Dawson and he/she provided verbal consent to participate in the treatment plan below. [x] Continue Care within PC-MHI. [ ] Behavioral Health Lab Monitoring weeks. [x] RTC in 2-4 weeks Outcome and recommendations will be discussed with the referring provider and other relevant PACT team members as needed. EDUCATION: Dawson was provided with opportunity to address any questions or concerns. The was provided with written contact information. The is aware of the Suicide Prevention Hotline number ( ) in case of crisis. If experiencing a mental health emergency, the should present to nearest emergency room or call 911 immediately. /dustin/ Shyanne Andrade PsyD Clinical Psychologist Signed: 11/06/2024 17:35 SHYANNE ANDRADE [facility]
--- NOTE | 2024-12-03 15:15 | PC.NURSE ---
[facility] has started construction of its new state of the art ER which will open Spring 2026. With this, we anticipate parking may be a challenge for some our surgical patients and families. Parking spaces are limited but are available for all Surgical, obstetrics, and ER patients sharing this lot. If you arrive and find you are having a hard time finding a parking space, please note that we understand the challenges, please drive around the hospital and park near Hospital Entrance 1. When you enter this entrance, you can ask a volunteer to direct or take you back to the surgical waiting area to check in. We appreciate everyone?s understanding of these expected challenges while we build for your future. Report to the Outpatient Waiting Room, entrance under the green pavilion located off [address], at time __9:30 AM on date __12/12/24 . Planned Procedure Time: __11:30 AM .? Time changes happen often and if your time is changed the preop area will call you the afternoon before. - You and your visitor will be asked to self-screen and do not enter if you have any COVID symptoms. Please call surgeon if you need to reschedule. - A mask is optional within the hospital at this time. Patients may have clear liquids (water, carbonated beverages, clear teas, apple juice) until 3 hours prior to surgery ( 8:30AM) with a maximum of 20 ounces. - No food from midnight until time of surgery and no smoking, or chewing tobacco (or any form of nicotine). No chewing gum, candy or mints. - Take only the following medications with a SIP of water on the morning of surgery: EYE DROP DO NOT STOP ANY OF YOUR OTHER PRESCRIPTION MEDICATIONS PRIOR TO SURGERY EXCEPT THE FOLLOWING Hold all vitamins and supplements for 3 days per anesthesiologist.LAST DOSE 12/08/24 Medications to discontinue per physician NONE Please no make-up, nail romanian, hairspray, perfume, deodorant, or body powder the day of surgery.? No jewelry (including any body piercings) or valuables the day of surgery, leave them at home.? Please take a shower or bath the night before, or the morning of, surgery with an antibacterial soap.? Wear comfortable, loose fitting clothing.? Children are encouraged to wear pajamas. - Jewelry must be removed prior to entering the operating room.? Rings and piercings that are not removed may be cut off. - The hospital will not accept responsibility for valuables.? - Please leave all valuables, including medications, at home the day of surgery. If you are going home after surgery, a licensed charter driver must drive you home.? - NO public transportation without another adult if you receive anesthesia. - We recommend that an adult stay with you for 24 hours following discharge. - We also recommend that you do not drive, make important decision, drink alcoholic beverages, or take any drugs that were not prescribed by your health care provider for at least 24 hours after your discharge time. Follow any additional instructions given to you from your surgeon. Telephone instructions given to ___PATIENT and asked if any additional questions and then verbalized understanding. Patient advised to call surgeon office or pre surgery nurse liaison [phone] if any additional questions.
[2024-12-03 15:38] VITALS: BMI 36.9
--- NOTE | 2025-01-31 11:33 | PC.NURSE ---
[facility] has started construction of its new state of the art ER which will open Spring 2026. With this, we anticipate parking may be a challenge for some our surgical patients and families. Parking spaces are limited but are available for all Surgical, obstetrics, and ER patients sharing this lot. If you arrive and find you are having a hard time finding a parking space, please note that we understand the challenges, please drive around the hospital and park near Hospital Entrance 1. When you enter this entrance, you can ask a volunteer to direct or take you back to the surgical waiting area to check in. We appreciate everyone?s understanding of these expected challenges while we build for your future. Report to the Outpatient Waiting Room, entrance under the green pavilion located off [address], at time __6 AM on date _02/13/25 . Planned Procedure Time: _7:30 AM .? Time changes happen often and if your time is changed the preop area will call you the afternoon before. - You and your visitor will be asked to self-screen and do not enter if you have any COVID symptoms. Please call surgeon if you need to reschedule. - A mask is optional within the hospital at this time. Patients may have clear liquids (water, carbonated beverages, clear teas, apple juice) until 3 hours prior to surgery ( 4:30 AM) with a maximum of 20 ounces. - No food from midnight until time of surgery and no smoking, or chewing tobacco (or any form of nicotine). No chewing gum, candy or mints. - Take only the following medications with a SIP of water on the morning of surgery: EYE DROP DO NOT STOP ANY OF YOUR OTHER PRESCRIPTION MEDICATIONS PRIOR TO SURGERY EXCEPT THE FOLLOWING Hold all vitamins and supplements for 3 days per anesthesiologist.LAST DOSE 02/09/25 Medications to discontinue per physician ____NONE Date to take last dose Please no make-up, nail nicaraguan, hairspray, perfume, deodorant, or body powder the day of surgery.? No jewelry (including any body piercings) or valuables the day of surgery, leave them at home.? Please take a shower or bath the night before, or the morning of, surgery with an antibacterial soap.? Wear comfortable, loose fitting clothing.? Children are encouraged to wear pajamas. - Jewelry must be removed prior to entering the operating room.? Rings and piercings that are not removed may be cut off. - The hospital will not accept responsibility for valuables.? - Please leave all valuables, including medications, at home the day of surgery. If you are going home after surgery, a licensed chuck wagon driver must drive you home.? - NO public transportation without another adult if you receive anesthesia. - We recommend that an adult stay with you for 24 hours following discharge. - We also recommend that you do not drive, make important decision, drink alcoholic beverages, or take any drugs that were not prescribed by your health care provider for at least 24 hours after your discharge time. For Pediatric surgeries, we recommend two adults accompany the child home. Follow any additional instructions given to you from your surgeon. Telephone instructions given to ____PATIENT and asked if any additional questions and then verbalized understanding. Patient advised to call surgeon office or pre surgery nurse liaison [phone] if any additional questions.
--- NOTE | 2025-01-31 11:37 | PC.NURSE ---
PT STATES NO CHANGE IN HEALTH HX OR MEDICATIONS SINCE LAST INTERVIEW 12/03/24
--- NOTE | 2025-02-12 17:29 | PM.SD2 ---
Same Day Admit/Disch: HPI History of Present Illness Chief complaint: Recurrent incisional hernia Narrative: Amador Morrison is a 64 year old male had been noticing some lower abdominal pain. He had a history of a laparoscopic cholecystectomy years ago. At the procedure, he was told his surgeon had repaired an umbilical hernia at the same time as the cholecystectomy. Patient was seen in the office and noted to have a reducible umbilical hernia with a 2 cm defect. The umbilical skin had become slightly dusky as it had enlarged. There is a scar evident at the umbilicus consistent with previous incision either for trocar or repair of the umbilical hernia. He is taken to surgery now for repair of recurrent umbilical incisional hernia. 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 Spiritual care concerns: No Same Day Admit/Disch: Med Pre-admit Medications Home Medications ?Medication ?Instructions ?Recorded ?Confirmed ?Type cetirizine 10 mg capsule (All Day 10 mg PO HS PRN allergy symptoms 12/03/24 12/03/24 History Allergy (cetirizine)) colesevelam 625 mg tablet (WelChol) 1,250 mg PO TID 12/03/24 02/13/25 History esomeprazole magnesium 40 mg 40 mg PO DAILY 12/03/24 02/13/25 History capsule,delayed release (Nexium) glucosamine-chondroitin 250 mg-200 2 tablet PO BID 12/03/24 02/13/25 History mg tablet lactobacillus combination no.4 3 3,000 mmu cells PO DAILY 12/03/24 02/13/25 History billion cell capsule (Probiotic) latanoprost 0.005 % eye drops 1 drp EACH EYE HS 12/03/24 12/03/24 History multivitamin with minerals-folic 1 tablet PO DAILY 12/03/24 02/13/25 History acid 400 mcg-lycopene 370 mcg tablet (One-A-Day Men's 50 Plus) timolol 0.5 %-bimatoprost 0.01 % 1 drp ophthalmic (eye) BID 12/03/24 02/13/25 History eye drops vitamins-lipotropics tablet 1 tablet PO TID 12/03/24 02/13/25 History ketorolac 10 mg tablet 10 mg PO Q6H 4 days #16 tabs 02/13/25 Rx oxycodone-acetaminophen 5 mg-325 1 - 2 tablet PO Q6H PRN pain #20 02/13/25 Rx mg tablet (Percocet) tabs Review of Systems Review of Systems All systems reviewed & are unremarkable except as noted in HPI and below (HPI) Exam Const: General: comfortable, no acute distress, alert and awake HENMT: Head: normocephalic and atraumatic Mouth: Yes Normal oral and palatal mucosa present Eyes: Conjunctivae: conjunctivae normal Pupils: Equal, round and reactive pupils present EOM: EOMs intact bilaterally Neck: Neck: normal visual inspection, no lymphadenopathy and nontender Resp: Effort & Inspection: normal respiratory effort Auscultation: clear to auscultation bilaterally Cardio: Rate: regular rate Rhythm: regular rhythm Heart sounds: no gallops, no murmurs and no rubs GI: Inspection: non-distended, obesity, scar (Upper aspect of umbilicus in the midline) and visible herniation (Umbilical with dusky overlying skin) GI Palp: Yes Soft to palpation, No Tenderness to palpation present (GI), No Hepatomegaly present, No Splenomegaly present and Yes Hernia present incisional < 3 cm Skin: Lesions: no lesions Rashes: no rashes Neuro: General: no focal motor deficits and CN's II-XI intact bilaterally Cranial nerves: Yes Equal, round and reactive pupils present, Yes Bilaterally intact EOM present, Yes facial symmetry and Yes Midline tongue present Speech: normal speech Motor exam (neuro): 5/5 motor strength present throughout and Motor abnormalities not present Extrem: General: no clubbing, cyanosis or edema and edema Psych: Affect: normal affect Thought process: Normal thought process present Insight: Good insight present (Psych) DS: Summary Time Spent with Patient Time attestation: Total time spent providing and/or coordinating discharge services: DS: Admitting Diagnosis Discharge Date 02/13/2025 Admitting Diagnosis Recurrent umbilical incisional hernia-plan to proceed with robotic laparoscopic repair with mesh. The procedure, risks, benefits have all been discussed with the patient. The usual length of the surgery, length of recovery and typically outpatient service of the hernia repair have been described. All questions were answered. He understands and wishes to proceed. Reynoso's esophagus GERD Migraine headaches Glaucoma DS: Discharge Diagnosis Discharge Diagnosis (1) Incisional hernia without obstruction or gangrene: Code(s): K43.2 - Incisional hernia without obstruction or gangrene Status: Chronic Assessment and Plan: Robotic laparoscopic repair with mesh performed 02/13/[address] Villa Discharge Plan Discharge Patient Disposition: Home Discharge Instructions: 1. May shower the day after surgery over incisions. 2. Call office for: -Wound increasingly painful or bleeding -Vomiting -Fever of greater than 101 degrees 3. A fluid collection may develop in the empty space under the umbilical skin. This may distend the umbilical skin but is not a recurrent hernia. 4. If no bowel movement for three days, take 1 oz. (30 ml) Milk of Magnesia, if no results, take Fleets enema. 5. No heavy lifting > 15-20 pounds for 2 weeks. 6. No driving for 3 days or while taking narcotic pain medications. 7. Up walking 10-30 minutes three times per day. 8. Resume previous home medications. 9. Follow-up 10-14 days in office for wound check or as previously scheduled. 10. Oral pain medications prescription to be sent home with patient. 11. NUTRITION: Start out by drinking fluids and increase your diet as tolerated. If you experience nausea, try dry toast, crackers, and 7-UP. If nausea or vomiting persists, contact your surgeon?s office. Patient Language: Namibian Stand Alone Forms: General Discharge Instructions Follow-up/Referrals: Dagoberto Villa MD [Physician, General Surgery] - 3 Weeks Discharge Medications: New ketorolac 10 mg tablet 10 mg PO Q6H 4 Days Qty: 16 0RF oxycodone-acetaminophen [Percocet] 5-325 mg tablet 1 - 2 tablet PO Q6H PRN (Reason: pain) Qty: 20 0RF Continued esomeprazole magnesium [Nexium] 40 mg capsule,delayed release(DR/EC) 40 mg PO DAILY colesevelam [WelChol] 625 mg tablet 1,250 mg PO TID All Day Allergy (cetirizine) 10 mg capsule 10 mg PO HS PRN (Reason: allergy symptoms) Probiotic 3 billion cell capsule 3,000 mmu cells PO DAILY Rx Instructions: administer with a meal One-A-Day Men's 50 Plus 400-370 mcg tablet 1 tablet PO DAILY vitamins-lipotropics Tablet 1 tablet PO TID glucosamine-chondroitin 250-200 mg tablet 2 tablet PO BID Rx Instructions: give after food/meal latanoprost 0.005 % drops 1 drp EACH EYE HS timolol-bimatoprost 0.5-0.01 % drops 1 drp ophthalmic (eye) BID Patient Comments: LEFT EYE ONLY
[2025-02-13] VITALS (8 sets, daily range): BP systolic 108–166; BP diastolic 60–87; PULSE 61–79; RESP 12–20; TEMP 36.2–36.6; O2SAT 91–100
--- OUTSIDE RECORDS SUMMARY | 2025-02-13 00:39 | XMS_ITS | Continuity of Care Document ---
Author Name [facility] Organization [facility] Care Team Providers Care Fire And Safety Helper Name Role Phone [facility] Unavailable Unavailable Problems Combined list of problems from Department of Defense and Veterans Affairs facilities. It does not include entries that were removed or entered in error. 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 Active Condition [facility] Low back pain Active Condition [facility] Migraine Active Condition [facility] Peripheral neuropathy Active Condition [facility] Sleep Apnea (SCT [id number]) Active Condition [facility] Vitamin D deficiency Active Condition [facility] Diagnosis: ICD-10-CM F41.9 Anxiety disorder, unspecified Active Diagnosis [facility] Diagnosis: ICD-10-CM 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, left eye, severe stage Active Diagnosis [facility] Diagnosis: ICD-10-CM E78.5 Hyperlipidemia, unspecified Active Diagnosis [facility] Diagnosis: ICD-10-CM K21.9 Gastro-esophageal reflux disease without esophagitis Active Diagnosis [facility] Diagnosis: ICD-10-CM 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 Medication Details Route Status Indication(s) Patie nt Instructions Prescription Expires Prescription Number Last Dispense Date Ordering Provider Order Date Order Qty Source ACETAMINOPH EN325/DICHL 100/ISOME 65MG CAP TAKE 1 CAPSULE BY MOUTH FOUR TIMES A DAY NEEDED ORAL ACTIVE SAMPLES,R OBERTA JUDI 2017 [facility] Afrin 0.05% nasal spray 2 spray(s) , Nostril- Both, BID, # 15 mL, 0 total refill(s ), [facility], Pharmacy : [id number] Nostri l-Both (into the nose) Ordered Acute upper respiratory infection, unspecified 2023 15.0 6130C-A f-C-375 [facility] cetirizine 10 mg oral tablet 1 tab(s), Oral, Daily, PRN allergy symptoms , # 90 tab(s), 3 total refill(s ), [facility], Pharmacy : [facility] Oral (given by mouth) Ordered 4 2023 90.0 6130C-A f-C-375 [facility] cetirizine 10 mg tablet See Instruct ions, # 90 EA, 3 total refill(s ), Acute Complet ed 05/13/2023 3 2023 90.0 Ambulat ory Pharmac y CETIRIZINE HCL 10MG TAB TAKE ONE TABLET BY MOUTH ONCE A DAY ORAL ACTIVE 12/08/2025 [id number] 5 RADHA BYERS I 2024 90 [facility] CETIRIZINE HCL 10MG TAB TAKE ONE TABLET BY MOUTH ONCE A DAY ORAL DISCONT INUED 04/19/2025 [id number] RADHA BYERS I 2024 90 [facility] CETIRIZINE HCL 10MG TAB TAKE ONE TABLET BY MOUTH ONCE A DAY ORAL ACTIVE SAMPLES,R OBERTA JUDI 2017 [facility] CHOLECALCIF BAILEY 50MCG (2,000UNIT) TAB TAKE ONE TABLET BY MOUTH ONCE A DAY ORAL ACTIVE SAMPLES,R OBERTA JUDI 2017 [facility] cholestyram ine light 4 g/5 g powder-oral [231g] See Instruct ions, # 693 g, 1 total refill(s ), Soft Stop Ordered 2024 693.0 Ambulat ory Pharmac y clobetasol 0.05% ointment [60g] See Instruct ions, # 60 g, 2 total refill(s ), Soft Stop Ordered 5 2024 60.0 Ambulat ory Pharmac y colesevelam 625 mg oral tablet 2 tab, Oral, TID w/ Meals, # 540 tab(s), 3 total refill(s ), Herbert jones, Pharmacy : [facility] Oral (given by mouth) Cancele d Obstruction of bile duct 04/10/20242024 540.0 6130C-A f-C-375 Th [facility] colesevelam 625 mg tablet See Instruct ions, Oral, # 540 EA, 3 total refill(s ), Hard Stop Oral (given by mouth) Discont inued 04/10/2024 4 2024 540.0 Ambulat ory Pharmac y colesevelam 625 mg tablet = 6 tab(s), Oral, with a meal and liquid, # 540 EA, 0 total refill(s ), Soft Stop Oral (given by mouth) Discont inued 06/27/2024 5 2024 540.0 Ambulat ory Pharmac y colesevelam 625 mg tablet See dose instruct ions in comments , # 540 EA, 3 total refill(s ), Acute Complet ed 05/13/2023 4 2023 540.0 Ambulat ory Pharmac y colesevelam 625 mg tablet See Instruct ions, # 540 EA, 1 total refill(s ), Soft Stop Ordered 5 2024 540.0 Ambulat ory Pharmac y colesevelam 625 mg tablet See Instruct ions, Oral, 0, # 540 EA, 2 total refill(s ), Soft Stop Oral (given by mouth) Discont inued 01/29/2025 5 2024 540.0 Ambulat ory Pharmac y COLESEVELAM HCL 625MG TAB TAKE TWO TABLETS BY MOUTH THREE TIMES A DAY ORAL ACTIVE Selvin NAJERA 2017 [facility] minda shaikh enesin 10 mg-100 mg/5 mL oral liquid 5 mL, Oral, every 4 hr, PRN cough, not to exceed 6 doses/da y, # 300 mL, 0 total refill(s ), Herbert [facility], [id number] Oral (given by mouth) Ordered Acute upper respiratory infection, unspecified 2023 300.0 6130C-A f-C-375 [facility] dicyclomine 10 mg oral capsule TAKE ONE CAPSULE BY MOUTH TWICE A DAY FOR FOURTEEN DAYS NEEDED, # 28 EA, 1 total refill(s ), Acute Complet ed 05/25/2023 3 2023 28.0 Ambulat ory Pharmac y DORZOLAMIDE HCL 22.3MG/ROSALINO LOL MALEATE 6.8MG/ML SOLN,OPH INSTILL 1 DROP IN LEFT EYE TWICE A DAY FOR GLAUCOMA OPHTHA LMIC ACTIVE 06/16/2025 [id number] 5 ROSI GEORGE III 2024 20 [facility] DORZOLAMIDE HCL 22.3MG/ROSALINO LOL MALEATE 6.8MG/ML SOLN,OPH INSTILL 1 DROP IN LEFT EYE TWICE A DAY FOR GLAUCOMA OPHTHA LMIC DISCONT INUED 05/06/2024 [id number] 5 MARISEL HERNANDEZ 2023 20 [facility] ESOMEPRAZOL E MAGNESIUM 40MG CAP,EC TAKE ONE CAPSULE BY MOUTH ONCE A DAY FOR ACID REFLUX. BRAND NAME NEXIUM * ORAL DISCONT INUED 10/13/2024 [id number] RADHA BYERS DHDilcia 2023 90 [facility] ESOMEPRAZOL E MAGNESIUM 40MG CAP,EC TAKE ONE CAPSULE BY MOUTH ONCE A DAY FOR ACID REFLUX. BRAND NAME NEXIUM * ORAL 02/09/2025 [id number] 5 RADHA BYERS I 2023 90 [facility] FLUOXETINE HCL 20MG CAP TAKE ONE CAPSULE BY MOUTH EVERY MORNING ORAL ACTIVE 08/31/2025 [id number] 5 MODESTANI I 2024 90 [facility] LATANOPROST 0.005% SOLN,OPH INSTILL 1 DROP IN BOTH EYES EVERY EVENING FOR GLAUCOMA . KEEP REFRIGER ATED UNTIL READY TO USE, THEN STORE AT ROOM TEMPERAT URE FOR MAXIMUM OF 42 DAYS. OPHA IC ACTIVE 06/16/2025 [id number] 5 ROSI GEORGE III 2024 10 [facility] LATANOPROST 0.005% SOLN,OPH INSTILL 1 DROP IN BOTH EYES EVERY EVENING FOR GLAUCOMA . KEEP REFRIGER ATED UNTIL READY TO USE, THEN STORE AT ROOM TEMPERAT URE FOR MAXIMUM OF 42 DAYS. OPHA [facility] DISCONT INUED 05/06/2024 [id number] 5 MARISEL HERNANDEZ 2023 10 [facility] MELOXICAM 15MG TAB TAKE ONE TABLET BY MOUTH ONCE A DAY FOR PAIN OR INFLAMMA TION ORAL 12/19/2024 [id number] 5 ROMIE WAKEFIELD T 2023 30 [facility] MELOXICAM 7.5MG TAB TAKE ONE TABLET BY MOUTH ONCE A DAY FOR PAIN OR INFLAMMA TION ORAL DISCONT INUED (EDIT) 03/11/2024 [id number] 4 RADHA BYERS I [address] [facility] OLOPATADINE HCL 0.1% SOLN,OPH INSTILL 1 DROP IN BOTH EYES TWICE DAILY NEEDED FOR ALLERGIC CONJUNCT IVITIS OPHTHA LMIC ACTIVE 10/13/2025 [id number] 5 ROSI GEORGE III 2024 5 [facility] PROBIOTIC COMBINATION CAP/TAB TAKE 1 CAPSULE BY MOUTH ORAL ACTIVE SAMPLES,R OBERTA JUDI [address] [facility] sildenafil 50 mg oral tablet TAKE ONE TABLET BY MOUTH ONE HOUR PRIOR TO INTERCOU RSE, # 30 EA, 3 total refill(s ), Acute Complet ed 04/11/2023 3 2023 30.0 Ambulat ory Pharmac y Allergies, Adverse Reactions, Alerts Combined list of allergies from Department of Defense and Veterans Affairs facilities. It does not include entries that were removed or entered in error. Substance Category Reaction Severity Reaction type Status Date Reported Comments Source No Known Allergies Drug allergy (disorder) active 7 [facility] [place] ([facility] SIMBRINZA Propensity to adverse reactions to drug (finding) Blurring of visual image active 2 [facility] Immunizations Combined list of available immunizations from the Department of Defense and Veterans Affairs facilities. Immunization Series Date Given Administered By Site Reaction Lot Number CVX Code Drug Occupational Therapy Assistant Status Comments Source COVID-19 (GENIAC), MRNA, LNP-S, PF, LEIGH-SUCROSE, 30 MCG/0.3 ML (AGES 12+ YEARS) 1 2023 MARCUSPERFECTO PANTOJA A LEFT DELTO ID [id number] 309 complet ed [place], tolerated injection without difficult y [facility] INFLUENZA, HIGH-DOSE, TRIVALENT, PF 2023 MARCUSPERFECTO PANTOJA A RIGHT DELTO ID [id number] 135 complet ed Completed Series, [place], tolerated injection without difficult y [facility] COVID-19 vaccine(Comir villa 12y+) 2023 ROYMWAGNER 309 complet ed Result Comment: Route: Unknown Manufactu rer: OTH (PFR) 6130C-A f-C-375 [facility] Influenza, inj, MDCK, quadrivalent- pf 2023 ROYMWAGNER 171 complet ed Result Comment: Route: Unknown Manufactu rer: OTH (SEQ) 6130C-A f-C-375 [facility] Influenza, inj, MDCK, quadrivalent- pf 10/03/ 2022 ROYMWAGNER 171 complet ed Result Comment: Route: Unknown Manufactu rer: OTH (SEQ) 6130C-A f-C-375 [facility] COVID-19, MRNA, LNP-S, BIVALENT BOOSTER, PF, 30 MCG/0.3 ML DOSE 1 2021 300 complet ed PFR; [id number]; 3 [facility] Influenza, inj, MDCK, quadrivalent- pf 2020 171 [employer] complet ed Influenza , inj, MDCK, quadrival ent-pf 11/22/20 Given Ambulat ory Pharmac y Influenza, injectable, MDCK, preservative free, quadrivalent 2020 BICKERS, () Not Given Influenza , injectabl e, MDCK, preservat cindy free, quadrival ent DoD COVID-19 (PFIZER), MRNA, LNP-S, PF, 30 MCG/0.3 ML DOSE 2 2020 208 complet ed [facility] COVID-19 (GENIAC), MRNA, LNP-S, PF, 30 MCG/0.3 ML DOSE 1 2020 208 complet ed [facility] INFLUENZA, UNSPECIFIED FORMULATION 2019 88 complet ed [facility] influenza, injectable, quadrivalent- pf 2019 ROYMWAGNER 150 complet ed Result Comment: Unit: Unknown Manufactu rer: () 6130C-A f-C-375 [facility] influenza, injectable, quadrivalent, preservative free 2019 ALUL, () Not Given influenza , injectabl e, quadrival ent, preservat cindy free [facility] INFLUENZA, UNSPECIFIED FORMULATION 2018 88 complet ed [facility] zoster vaccine, inactivated 2018 ROYMWAGNER 187 complet ed Result Comment: Unit: Unknown Manufactu rer: () 6130C-A f-C-375 Th [facility] ZOSTER RECOMBINANT 2018 187 complet ed 02, Partner: [facility]. Administe red by: KEYLA SALINAS (LPS=[phone] [id number]). Partner 36 Lot#: [id number] Mfr: Architonicline; Dosage: 1 [facility] zoster recombinant 2018 ALUL, () Not Given zoster recombina nt DoD Influenza, inj, MDCK, quadrivalent- pf 2018 171 [employer] complet ed Influenza , inj, MDCK, quadrival ent-pf 11/23/18 Given Ambulat ory Pharmac y INFLUENZA, INJECTABLE, MDCK, PRESERVATIVE FREE, QUADRIVALENT 2018 171 complet ed 02, Partner: [facility]. Administe red by: RUSHDI ALUL (KNS=[phone] [phone]). Partner 36 Lot#: [id number] Mfr: SEQIRUS; Dosage: 0.5 [facility] Influenza, injectable, MDCK, preservative free, quadrivalent 2018 ALUL, () Not Given Influenza , injectabl e, MDCK, preservat cindy free, quadrival ent DoD zoster vaccine, inactivated 2018 187 [employer] complet ed zoster vaccine, inactivat ed 07/31/18 Given Ambulat ory Pharmac y ZOSTER RECOMBINANT 2018 187 complet ed 02, Partner: [facility]. Administe red by: RUSHDI ALUL (VRB=[phone] [id number]). Partner 36 Lot#: [id number] Mfr: Architonicline; Dosage: 1 [facility] zoster recombinant 2018 ALUL, () Not Given zoster recombina nt DoD influenza, injectable, quadrivalent- pf 2017 150 [employer] complet ed influenza , injectabl e, quadrival ent-pf 11/29/17 Given Ambulat ory Pharmac y INFLUENZA, UNSPECIFIED FORMULATION 2017 88 complet ed [facility] Influenza, inj, MDCK, quadrivalent- pf 2016 zzLef t Arm [id number] [employer] complet ed Influenza , inj, MDCK, quadrival ent-pf 01/10/17 Given Ambulat ory Pharmac y Influenza, inj, MDCK, quadrivalent- pf [id number] [employer] complet ed Influenza , inj, MDCK, quadrival ent-pf 01/10/17 Given Ambulat ory Pharmac y Influenza, injectable, Madin Jessica Canine Kidney, preservative free, quadrivalent 1 2016 Unknown, Provider [id number] [employer] (SEQ) complet ed Influenza , injectabl e, Madin Jessica Canine Kidney, preservat cnidy free, quadrival ent DoD influenza, seasonal, injectable-pf 2015 zzLef t Arm [id number] 140 [employer] complet ed influenza , seasonal, injectabl e-pf 12/02/15 Given Ambulat ory Pharmac y influenza, seasonal, injectable-pf 2015 [id number] 140 [employer] complet ed influenza , seasonal, injectabl e-pf 12/02/15 Given Ambulat ory Pharmac y Influenza, seasonal, injectable, preservative free 1 2015 Unknown, Provider [id number] 140 [employer] (SKB) complet ed Influenza , seasonal, injectabl e, preservat cindy free DoD influenza, seasonal, injectable-pf 2013 ROYMWAGNER 140 complet ed Result Comment: Unit: Unknown Manufactu rer: () 6130C-A f-C-375 [facility] Influenza, seasonal, injectable, preservative free 2013 ROBIN CARREON MD () Not Given Influenza , seasonal, injectabl e, preservat cindy free DoD influenza virus vaccine, whole virus 1998 [id number] [facility] complet ed influenza virus vaccine, whole virus 11/28/98 Given Ambulat ory Pharmac y influenza virus vaccine, whole virus 1998 [id number] 16 [facility] complet ed influenza virus vaccine, whole virus 11/28/98 Given Ambulat ory Pharmac y influenza virus vaccine, whole virus 1 1998 Unknown, Provider [id number] 16 [facility] (CON) complet ed influenza virus vaccine, whole virus DoD Results Combined list of recent chemistry, hematology and other laboratory results from Department of Defense and Veterans Affairs, ranging from 15 months to all on record, depending upon the facility. Order Name Results Value Reference Range Date Interpretation Specimen Comments Source MICRAL/CR EAT PROFILE (STL) ALBUMIN [MASS/VOLUM E] IN URINE 17.7 mg/L 12/11 Specimen Type: URINE No comment entered. Ordering Provider: NEGRITA BYERS I Report Released Date/Time: Nov 29, 2023 04:07 PM Reporting Lab: [facility] [address] [place] [phone] Performing Lab: [facility] [address] [place] [phone] [facility] MICRAL/CR EAT PROFILE (STL) ALBUMIN/CRE ATININE [MASS RATIO] IN URINE 17 mg/g 0 - 29 12/11 Specimen Type: URINE No comment entered. Ordering Provider: NEGRITA BYERS I Report Released Date/Time: Nov 29, 2023 04:07 PM Reporting Lab: [facility] [address] [place] [phone] Performing Lab: [facility] [address] [place] [phone] [facility] MICRAL/CR EAT PROFILE (STL) CREATININE [MASS/VOLUM E] IN URINE 106.9 mg/dL 63 - 166 12/11 Specimen Type: URINE No comment entered. Ordering Provider: NEGRITA BYERS I Report Released Date/Time: Nov 29, 2023 04:07 PM Reporting Lab: [facility] [address] [place] [phone] Performing Lab: [facility] [address] [place] [phone] [facility] HGA1C HEMOGLOBIN A1C/HEMOGLO BIN.TOTAL IN BLOOD 5.2 4.0 - 6.0 12/11 Specimen Type: BLOOD No comment entered. Ordering Provider: NEGRITA BYERS I Report Released Date/Time: Nov 29, 2023 04:07 PM Reporting Lab: [facility] [address] [place] [phone] Performing Lab: [facility] [address] [place] [phone] [facility] LIPID PANEL (STL) CHOLESTEROL [MASS/VOLUM E] IN SERUM OR PLASMA 177 mg/dL 0 - 200 10/28 /2024 Specimen Type: PLASMA Comment: No hemolysis noted. Ordering Provider: NEGRITA BYERS I Report Released Date/Time: Nov 29, 2023 04:07 PM Reporting Lab: [facility] [address] [place] [phone] Performing Lab: [facility] [address] [place] [phone] [facility] LIPID PANEL (STL) TRIGLYCERID E [MASS/VOLUM E] IN SERUM OR PLASMA 206 mg/dL 0 - 150 12/11 H Specimen Type: PLASMA Comment: No hemolysis noted. Ordering Provider: NEGRITA BYERS I Report Released Date/Time: Nov 29, 2023 04:07 PM Reporting Lab: [facility] [address] [place] [phone] Performing Lab: [address] [phone] [place] [address] LIPID PANEL (STL) CHOLESTEROL IN LDL [MASS/VOLUM E] IN SERUM OR PLASMA BY CALCULATION 102 mg/dL 12/11 Specimen Type: PLASMA Comment: No hemolysis noted. Ordering Provider: NEGRITA BYERS I Report Released Date/Time: Nov 29, 2023 04:07 PM Reporting Lab: [facility] [address] [place] [phone] Performing Lab: [facility] [address] [place] [phone] [facility] LIPID PANEL (STL) CHOLESTEROL IN HDL [MASS/VOLUM E] IN SERUM OR PLASMA 34 mg/dL 40 12/11 L Specimen Type: PLASMA Comment: No hemolysis noted. Ordering Provider: NEGRITA BYERS I Report Released Date/Time: Nov 29, 2023 04:07 PM Reporting Lab: [facility] [address] [place] [phone] Performing Lab: [facility] [address] [place] [phone] [facility] COMPREHEN SIVE METABOLIC PANEL CREATININE [MASS/VOLUM E] IN SERUM OR PLASMA 0.96 mg/dL 0.7 - 1.3 12/11 Specimen Type: PLASMA Comment: No hemolysis noted. Ordering Provider: NEGRITA BYERS I Report Released Date/Time: Nov 29, 2023 04:07 PM Reporting Lab: [facility] [address] [place] [phone] Performing Lab: [facility] [address] [place] [phone] [facility] COMPREHEN SIVE METABOLIC PANEL UREA NITROGEN [MASS/VOLUM E] IN SERUM OR PLASMA 11.0 mg/dL 9.0 - 25.0 12/11 Specimen Type: PLASMA Comment: No hemolysis noted. Ordering Provider: NEGRITA BYERS I Report Released Date/Time: Nov 29, 2023 04:07 PM Reporting Lab: [facility] [address] [place] [phone] Performing Lab: [address] [phone] [place] [address] COMPREHEN SIVE METABOLIC PANEL GLUCOSE [MASS/VOLUM E] IN SERUM OR PLASMA 115 mg/dL 72 - 99 12/11 H Specimen Type: PLASMA Comment: No hemolysis noted. Ordering Provider: NEGRITA BYERS I Report Released Date/Time: Nov 29, 2023 04:07 PM Reporting Lab: [facility] [address] [place] [phone] Performing Lab: [facility] [address] [place] [phone] [facility] COMPREHEN SIVE METABOLIC PANEL SODIUM [MOLES/VOLU ME] IN SERUM OR PLASMA 139 meq/L 136 - 145 12/11 Specimen Type: PLASMA Comment: No hemolysis noted. Ordering Provider: NEGRITA BYERS I Report Released Date/Time: Nov 29, 2023 04:07 PM Reporting Lab: [facility] [address] [place] [phone] Performing Lab: [facility] [address] [place] [phone] [facility] COMPREHEN SIVE METABOLIC PANEL POTASSIUM [MOLES/VOLU ME] IN SERUM OR PLASMA 3.9 meq/L 3.5 - 5 12/11 Specimen Type: PLASMA Comment: No hemolysis noted. Ordering Provider: NEGRITA BYERS I Report Released Date/Time: Nov 29, 2023 04:07 PM Reporting Lab: [facility] [address] [facility] [phone] Performing Lab: [facility] [address] [place] [phone] [facility] COMPREHEN SIVE METABOLIC PANEL CHLORIDE [MOLES/VOLU ME] IN SERUM OR PLASMA 108 meq/L 98 - 107 12/11 H Specimen Type: PLASMA Comment: No hemolysis noted. Ordering Provider: NEGRITA BYERS I Report Released Date/Time: Nov 29, 2023 04:07 PM Reporting Lab: [address] [phone] Performing Lab: [address] [phone] [facility] COMPREHEN SIVE METABOLIC PANEL CARBON DIOXIDE, TOTAL [MOLES/VOLU ME] IN SERUM OR PLASMA 24 meq/L 22 - 31 12/11 Specimen Type: PLASMA Comment: No hemolysis noted. Ordering Provider: NEGRITA BYERS I Report Released Date/Time: Nov 29, 2023 04:07 PM Reporting Lab: [facility] [address] [place] [phone] Performing Lab: [facility] [address] [place] [phone] [facility] COMPREHEN SIVE METABOLIC PANEL CALCIUM [MASS/VOLUM E] IN SERUM OR PLASMA 9.2 mg/dL 8.4 - 10.4 12/11 Specimen Type: PLASMA Comment: No hemolysis noted. Ordering Provider: NEGRITA BYERS I Report Released Date/Time: Nov 29, 2023 04:07 PM Reporting Lab: [facility] [address] [place] [phone] Performing Lab: [facility] [address] [place] [phone] [facility] COMPREHEN SIVE METABOLIC PANEL PROTEIN [MASS/VOLUM E] IN SERUM OR PLASMA 7.7 g/dL 6 - 8.6 12/11 Specimen Type: PLASMA Comment: No hemolysis noted. Ordering Provider: NEGRITA BYERS I Report Released Date/Time: Nov 29, 2023 04:07 PM Reporting Lab: [place] [phone] Performing Lab: [address] COMPREHEN SIVE METABOLIC PANEL ALBUMIN [MASS/VOLUM E] IN SERUM OR PLASMA 3.8 g/dL 3.4 - 5 12/11 Specimen Type: PLASMA Comment: No hemolysis noted. Ordering Provider: NEGRITA BYERS I Report Released Date/Time: Nov 29, 2023 04:07 PM Reporting Lab: [place] [address] Performing Lab: [address] COMPREHEN SIVE METABOLIC PANEL BILIRUBIN.T OTAL [MASS/VOLUM E] IN SERUM OR PLASMA 1.0 mg/dL 0.2 - 1.2 12/11 Specimen Type: PLASMA Comment: No hemolysis noted. Ordering Provider: NEGRITA BYERS I Report Released Date/Time: Nov 29, 2023 04:07 PM Reporting Lab: [address] [phone] Performing Lab: [address] [phone] [place] [address] COMPREHEN SIVE METABOLIC PANEL ALKALINE PHOSPHATASE [ENZYMATIC ACTIVITY/VO LUME] IN SERUM OR PLASMA 78 U/L 40 - 150 12/11 Specimen Type: PLASMA Comment: No hemolysis noted. Ordering Provider: NEGRITA BYERS I Report Released Date/Time: Nov 29, 2023 04:07 PM Reporting Lab: [address] [phone] Performing Lab: [address] [phone] [facility] COMPREHEN SIVE METABOLIC PANEL ASPARTATE AMINOTRANSF ERASE [ENZYMATIC ACTIVITY/VO LUME] IN SERUM OR PLASMA 22 U/L 5 - 34 12/11 Specimen Type: PLASMA Comment: No hemolysis noted. Ordering Provider: NEGRITA BYERS I Report Released Date/Time: Nov 29, 2023 04:07 PM Reporting Lab: [facility] [address] [facility] [address] Performing Lab: [facility] [address] [facility] [address] [facility] COMPREHEN SIVE METABOLIC PANEL ALANINE AMINOTRANSF ERASE [ENZYMATIC ACTIVITY/VO LUME] IN SERUM OR PLASMA 27 U/L 8 - 40 12/11 Specimen Type: PLASMA Comment: No hemolysis noted. Ordering Provider: NEGRITA BYERS I Report Released Date/Time: Nov 29, 2023 04:07 PM Reporting Lab: [facility] [address] [facility] [address] Performing Lab: [facility] [address] [facility] [address] [facility] COMPREHEN SIVE METABOLIC PANEL GLOMERULAR FILTRATION RATE/1.73 SQ M.PREDICTED [VOLUME RATE/AREA] IN SERUM, PLASMA OR BLOOD BY CREATININE- BASED FORMULA (CKD-EPI 2020) 87.7 60 12/11 Specimen Type: PLASMA Comment: No hemolysis noted. Ordering Provider: NEGRITA BYERS I Report Released Date/Time: Nov 29, 2023 04:07 PM Reporting Lab: [facility] [address] [facility] [address] Performing Lab: [facility] [address] [facility] [address] [facility] PROST. SPECIFIC AG.(PB-ST L) PROSTATE SPECIFIC AG [MASS/VOLUM E] IN SERUM OR PLASMA 0.253 ng/mL 0 - 4 12/11 Specimen Type: SERUM Comment: The listed sex of this patient may not be a typical indication for this test. Therefore, reference ranges or interpretiv e criteria listed may not be valid. Clinical correlation suggested. Ordering Provider: NEGRITA BYERS I Report Released Date/Time: Nov 29, 2023 04:07 PM Reporting Lab: [address] [address] Performing Lab: [place] [id number] [place] [address] VITAMIN D, 25-HYDROX Y 25-HYDROXYV ITAMIN D3 [MASS/VOLUM E] IN SERUM OR PLASMA 30.7 ng/mL 30 - 96 12/11 Specimen Type: SERUM Comment: The listed sex of this patient may not be a typical indication for this test. Therefore, reference ranges or interpretiv e criteria listed may not be valid. Clinical correlation suggested. Ordering Provider: NEGRITA BYERS I Report Released Date/Time: Nov 29, 2023 04:07 PM Reporting Lab: [address] [address] Performing Lab: [place] [address] [place] [address] TSH (MA-PB) THYROTROPIN [UNITS/VOLU ME] IN SERUM OR PLASMA 1.082 u[IU]/ mL 0.47 - 5 12/11 Specimen Type: SERUM Comment: The listed sex of this patient may not be a typical indication for this test. Therefore, reference ranges or interpretiv e criteria listed may not be valid. Clinical correlation suggested. Ordering Provider: NEGRITA BYERS I Report Released Date/Time: Nov 29, 2023 04:07 PM Reporting Lab: [address] [address] Performing Lab: [address] [phone] [place] [address] CBC LEUKOCYTES [#/VOLUME] IN BLOOD BY AUTOMATED COUNT 9.3 10*3/u L 3.6 - 11.2 12/11 Specimen Type: BLOOD No comment entered. Ordering Provider: NEGRITA BYERS I Report Released Date/Time: Nov 29, 2023 04:07 PM Reporting Lab: [place] [address] Performing Lab: [facility] [address] [facility] [address] [facility] CBC ERYTHROCYTE S [#/VOLUME] IN BLOOD BY AUTOMATED COUNT 5.44 10*6/u L 4.10 - 5.70 12/11 Specimen Type: BLOOD No comment entered. Ordering Provider: NEGRITA BYERS I Report Released Date/Time: Nov 29, 2023 04:07 PM Reporting Lab: [facility] [address] [place] [address] Performing Lab: [phone] [place] [address] CBC HEMOGLOBIN [MASS/VOLUM E] IN BLOOD 16.0 g/dL 13.1 - 16.8 12/11 Specimen Type: BLOOD No comment entered. Ordering Provider: NEGRITA BYERS I Report Released Date/Time: Nov 29, 2023 04:07 PM Reporting Lab: [facility] [address] [place] [address] Performing Lab: [address] [phone] [place] [address] CBC HEMATOCRIT [VOLUME FRACTION] OF BLOOD 47.2 38.2 - 48.4 12/11 Specimen Type: BLOOD No comment entered. Ordering Provider: NEGRITA BYERS I Report Released Date/Time: Nov 29, 2023 04:07 PM Reporting Lab: [facility] [address] [place] [address] Performing Lab: [facility] [address] [place] [phone] [facility] CBC MCV [ENTITIC VOLUME] BY AUTOMATED COUNT 86.8 fL 80.0 - 100.0 12/11 Specimen Type: BLOOD No comment entered. Ordering Provider: NEGRITA BYERS I Report Released Date/Time: Nov 29, 2023 04:07 PM Reporting Lab: [address] [address] Performing Lab: [place] [address] [place] [address] [facility] CBC MCH [ENTITIC MASS] BY AUTOMATED COUNT 29.4 pg 27.0 - 34.0 12/11 Specimen Type: BLOOD No comment entered. Ordering Provider: NEGRITA BYERS I Report Released Date/Time: Nov 29, 2023 04:07 PM Reporting Lab: [facility] [address] [place] [address] Performing Lab: [address] [address] [facility] CBC MCHC [MASS/VOLUM E] BY AUTOMATED COUNT 33.9 g/dL 33.0 - 36.0 12/11 Specimen Type: BLOOD No comment entered. Ordering Provider: NEGRITA BYERS I Report Released Date/Time: Nov 29, 2023 04:07 PM Reporting Lab: [address] [address] Performing Lab: [address] [address] [facility] CBC PLATELETS [#/VOLUME] IN BLOOD BY AUTOMATED COUNT 172 10*3/u L 150 - 400 12/11 Specimen Type: BLOOD No comment entered. Ordering Provider: NEGRITA BYERS I Report Released Date/Time: Nov 29, 2023 04:07 PM Reporting Lab: [address] [address] Performing Lab: [address] [address] [facility] CBC PLATELET MEAN VOLUME [ENTITIC VOLUME] IN BLOOD BY AUTOMATED COUNT 9.2 fL 7.5 - 11.2 12/11 Specimen Type: BLOOD No comment entered. Ordering Provider: NEGRITA BYERS I Report Released Date/Time: Nov 29, 2023 04:07 PM Reporting Lab: [address] [address] Performing Lab: [address] [address] [facility] CBC ERYTHROCYTE DISTRIBUTIO N WIDTH [RATIO] BY AUTOMATED COUNT 13.8 11.8 - 15.1 12/11 Specimen Type: BLOOD No comment entered. Ordering Provider: NEGRITA BYERS I Report Released Date/Time: Nov 29, 2023 04:07 PM Reporting Lab: [facility] [address] [facility] [address] Performing Lab: [facility] [address] [place] [phone] [facility] CBC LYMPHOCYTES /100 LEUKOCYTES IN BLOOD BY AUTOMATED COUNT 22 12/11 Specimen Type: BLOOD No comment entered. Ordering Provider: NEGRITA BYERS I Report Released Date/Time: Nov 29, 2023 04:07 PM Reporting Lab: [facility] [address] [place] [address] Performing Lab: [facility] [address] [place] [phone] [facility] CBC MONOCYTES/1 00 LEUKOCYTES IN BLOOD BY AUTOMATED COUNT 7 12/11 Specimen Type: BLOOD No comment entered. Ordering Provider: NEGRITA BYERS I Report Released Date/Time: Nov 29, 2023 04:07 PM Reporting Lab: [facility] [address] [facility] [address] Performing Lab: [facility] [address] [place] [phone] [facility] CBC NEUTROPHILS /100 LEUKOCYTES IN BLOOD BY AUTOMATED COUNT 64 12/11 Specimen Type: BLOOD No comment entered. Ordering Provider: NEGRITA BYERS I Report Released Date/Time: Nov 29, 2023 04:07 PM Reporting Lab: [facility] [address] [place] [phone] Performing Lab: [facility] [address] [place] [phone] [facility] CBC EOSINOPHILS /100 LEUKOCYTES IN BLOOD BY AUTOMATED COUNT 6 12/11 Specimen Type: BLOOD No comment entered. Ordering Provider: NEGRITA BYERS I Report Released Date/Time: Nov 29, 2023 04:07 PM Reporting Lab: [facility] [address] [place] [address] Performing Lab: [facility] [address] [place] [phone] [facility] CBC BASOPHILS/1 00 LEUKOCYTES IN BLOOD BY AUTOMATED COUNT 1 12/11 Specimen Type: BLOOD No comment entered. Ordering Provider: NEGRITA BYERS I Report Released Date/Time: Nov 29, 2023 04:07 PM Reporting Lab: [facility] [address] [place] [address] Performing Lab: [address] [phone] CBC LYMPHOCYTES [#/VOLUME] IN BLOOD BY AUTOMATED COUNT 2.07 10*3/u L 0.77 - 4.50 12/11 Specimen Type: BLOOD No comment entered. Ordering Provider: NEGRITA BYERS I Report Released Date/Time: Nov 29, 2023 04:07 PM Reporting Lab: [facility] [address] [place] [phone] Performing Lab: [facility] [address] [place] [phone] [facility] CBC MONOCYTES [#/VOLUME] IN BLOOD BY AUTOMATED COUNT 0.67 10*3/u L 0.19 - 0.80 12/11 Specimen Type: BLOOD No comment entered. Ordering Provider: NEGRITA BYERS I Report Released Date/Time: Nov 29, 2023 04:07 PM Reporting Lab: [facility] [address] [place] [phone] Performing Lab: [facility] [address] [place] [address] [facility] CBC NEUTROPHILS [#/VOLUME] IN BLOOD BY AUTOMATED COUNT 5.92 10*3/u L 2.10 - 8.00 12/11 Specimen Type: BLOOD No comment entered. Ordering Provider: NEGRITA BYERS I Report Released Date/Time: Nov 29, 2023 04:07 PM Reporting Lab: [facility] [address] [place] [phone] Performing Lab: [address] [address] [facility] CBC EOSINOPHILS [#/VOLUME] IN BLOOD BY AUTOMATED COUNT 0.55 10*3/u L 0.00 - 0.60 12/11 Specimen Type: BLOOD No comment entered. Ordering Provider: NEGRITA BYERS I Report Released Date/Time: Nov 29, 2023 04:07 PM Reporting Lab: [address] [address] Performing Lab: [address] [phone] CBC BASOPHILS [#/VOLUME] IN BLOOD BY AUTOMATED COUNT 0.06 10*3/u L 0.00 - 0.20 12/11 Specimen Type: BLOOD No comment entered. Ordering Provider: NEGRITA BYERS I Report Released Date/Time: Nov 29, 2023 04:07 PM Reporting Lab: [address] [address] Performing Lab: [address] [phone] [place] [address] Chemistry Vitamin D 25 OH 29.2 ng/mL 30.0 - 100.0 05/23 L Interpretiv e Data: Classificat ion of Vitamin D Status: Deficient: <20 ng/mL Insufficien t: 20-29 ng/mL Sufficient: 30-100 ng/mL Possible Toxicity: >100 ng/mL This assay is for the quantitativ e determinati on of total 25 (OH) vitamin D. It is intended as an aid in the determinati on of vitamin D sufficiency . Results should always be interpreted in conjunction with the patient's medical history, clinical presentatio n, and other findings. Testing performed by [facility] jessy ce. 5600A-USA FSAM EPILAB Vital Signs Combined list of inpatient and outpatient Vital Signs from Department of Defense and Veterans Affairs, ranging from 12 months to all on record, depending upon the facility. Vital Sign Value Date Comments Source Peripheral Pulse Rate 74 bpm 05/13/2023 19:14:00 6507A-Ig-E-[facility]Th [facility] Respiratory Rate 20 br/min 05/13/2023 19:14:00 6257W-Dd-M-[facility] Blood Pressure Manual Automatic 05/13/2023 19:14:00 7904P-Pf-U-375Th [facility] Mean Arterial Pressure, Cuff (Calc) 97 mm[Hg] 05/13/2023 19:14:00 2198B-Oe-J-375Th [facility] Systolic Blood Pressure 126 mm[Hg] 05/13/19 24 19:14:00 3549O-Sy-P-375Th [facility] Diastolic Blood Pressure 82 mm[Hg] 024 19:14:00 4648A-Kg-M-375Th [facility] BP Site Right arm 05/13/2023 19:14:00 2241O-Ec-V-375Th [facility] SYSTOLIC BLOOD PRESSURE 113 08/31/19 25 10:42:07 [facility] DIASTOLIC BLOOD PRESSURE 74 025 10:42:07 [facility] PULSE OXIMETRY 95 % 08/30/2024 10:42:07 [facility] WEIGHT 254.3 08/30/2024 10:42:07 [facility] BMI 38 kg/m2 08/30/2024 10:42:07 [facility] PAIN 0 08/30/2024 10:42:07 [facility] HEIGHT 69 08/30/2024 10:42:07 [facility] TEMPERATURE 98.4 08/30/2024 10:42:07 [facility] PULSE 78 08/30/2024 10:42:07 [facility] RESPIRATION 16 08/30/2024 10:42:07 [facility] Encounters Combined list of: 1) Encounters from Department of Veterans Affairs facilities going backup to the last 18 months, not all VA inpatient encounters are included; 2) Encounters from the Department of Defense facilities going backup to 280 months. Location Location Details Encounter Type Encounter Number Reason For Visit Attending Provider ADM Date DC Date Status Disposition Source [facility] JACKSON ([facility])(Sco tt [facility] Fam Res Tm Red) OUTPATIENT [id number] new pt- med [facility] [id number] MAGALI RYAN 10/17 Released w/o Limitations [address] [place] [address] Phong JACKSON [facility])([facility] Fam Res Tm Red) [address] [place] [address] Phong [facility])([facility] Fam Res Tm Red) TELE CONSULT [id number] Notes Entered by: ROSALINO MENESES 13 Dec 2014 1031 ------- ------- ------- ------- -- Med Ran out/ Dr. Herrera n/ [phone] MAGALI RYAN 12/[address] [place] [address] Phong SARAHGilberto [facility])([facility] Fam Res Tm Red) [address] [place] [address] Phong [facility])([facility] Fam Res Tm Red) OUTPATIENT [id number] F/U regardi ng medicat ion [id number] MAGALI RYAN 12/16 Released w/o Limitations [address] [place] [address] [facility] Fam Res Tm Red) [address] [place] [address] [facility] Fam Res Tm Red) TELE CONSULT [id number] Notes Entered by: Rachna NOLASCO 17 Dec 2014 1841 ------- ------- ------- ------- -- Medicat ion MAGALI RYAN 12/[address] [place] [address] Phong SARAHGilberto [facility])([facility] Fam Res Tm Red) [address] [place] [address] Phong MANUEL [facility])([facility] Fam Res Tm Red) OUTPATIENT [id number] eye doctor keron giraldo and follow up on status of welchol perscri ption change JANI SAGE 01/06 Released w/o Limitations [address] [place] [address] Phnog SARAHB [facility])([facility] Fam Res Tm Red) [address] [place] [address] Phong SARAHB [facility])([facility] Fam Res Tm Red) OUTPATIENT [id number] pain in lower back xsevera l years pain on and off,dis cuss painful bubbles g JANI SAGE 06/09 Released w/o Limitations [address] [place] [address] Phong JACKSON [facility]) [address] [place] [address] Phong [facility])([facility] Fam Res Tm Red) TELE CONSULT [id number] Notes Entered by: BOB BRENNAN 19 Jun 2015 1214 ------- ------- ------- ------- -- LYNNE [facility] - JANI SAGE 06/[address] [place] [address] Phong [facility])(S [facility] Fam Res Tm Red) [address] [place] [address] Phong [facility])([facility]) OUTPATIENT [id number] Notes Entered by: STEFFANIE HERNANDEZ 25 Jun 2015 1117 ------- ------- ------- ------- -- Weight Loss STEFFANIE HERNANDEZ 06/24 Released w/o Limitations [address] [place] [address] Phong [facility])(N utritio nal Medicin e) [address] [place] [address] Phong [facility])([facility] Fam Res Tm Red) TELE CONSULT [id number] Notes Entered by: Rachna NOLASCO 26 Jun 2015 1018 ------- ------- ------- ------- -- Request s renewal of SÁNCHEZ Sow 06/[address] [place] [address] Phong [facility])(S [facility] Fam Res Tm Red) [address] [place] [address] Phong [facility])([facility] Fam Res Tm Red) TELE CONSULT [id number] Notes Entered by: Eugenio PATEL 31 Jul 2015 1510 ------- ------- ------- ------- -- Network Results OTOLARY NGOLOGY 07/25/19 16 DB JANI SAGE 07/[address] [place] [address] Phong SARAHGilberto [facility])(S [facility] Fam Res Tm Red) [address] [place] [address] Phong Gilberto [facility])([facility] Fam Res Tm Red) OUTPATIENT [id number] F/U Appt [id number] ELLEN CRAFT 09/24 Released w/o Limitations [address] [place] [address])(S [facility] Fam Res Tm Red) [address] [place] [address])(Sco tt [facility] Fam Res Tm Gold) OUTPATIENT [id number] FU back pain/re quest referra l/ / SAMARIA DAO 11/30 Released w/o Limitations [address] [place] [address])(S [facility] Fam Res Tm Gold) [address] [place] [address])(Iao tt [facility] Fam Res Tm Red) TELE CONSULT [id number] Notes Entered by: LJ SUAREZ 03 Dec 2015 1527 ------- ------- ------- ------- -- MRI request /Lali/ /c SÁNCHEZ Linn 12/[address] [place] [address])([facility] Fam Res Tm Red) [address] [place] [address])([facility] FAMRES Tm Blue) TELE CONSULT [id number] Notes Entered by: WILLY CARIG 22 Dec 2015 1317 ------- ------- ------- ------- -- Network results Rah l Therapy 016 EMMY UREÑA 12/[address] [place] [address])([facility] FAMRES Tm Blue) [address] [place] [address])([facility] Fam Res Tm Red) TELE CONSULT [id number] Notes Entered by: RAD SONG 25 Dec 2015 1043 ------- ------- ------- ------- -- Referra l Request /Lali/ 200.928 JUANITA THOMPSON 12/24 Other Not Elsewhere Classified [address] [place] [address])([facility] Fam Res Tm Red) [address] [place] [address] [facility]Sco tt [facility] FAMRES Tm Blue) TELE CONSULT [id number] Notes Entered by: WILLY CRAIG 21 Jan 2016 1032 ------- ------- ------- ------- -- Network results Physica l Therapy 016 EMMY UREÑA 01/[address] [place] [address] Phong [facility])([facility] FAMRES Tm Blue) [address] [place] [address] Phong [facility])(Sco tt [facility] Fam Res Tm Red) TELE CONSULT [id number] Notes Entered by: Pranav [place]ENTHAL 19 Mar 2016 1043 ------- ------- ------- ------- -- ER/Hosp ital F/U Appt/ Lali/ [phone] -[phone] - SÁNCHEZ Burr 03/[address] [place] [address] Phong [facility])([facility] Fam Res Tm Red) [address] [place] [address] Phong [facility])(Sco tt [facility] Fam Res Tm Red) OUTPATIENT [id number] f/u [facility] EMMY ARROYO 03/19 Released w/o Limitations [address] [place] [address] [facility] Fam Res Tm Red) [address] [place] [address] Phong [facility])(Sco tt [facility] Fam Res Tm Green) TELE CONSULT [id number] Notes Entered by: KIMBERLEE RUCKER 23 Mar 2016 1555 ------- ------- ------- ------- -- Network results Physica l Therapy 7 SÁNCHEZ RUIZ 03/[address] [place] [address] [facility] Fam Res Tm Green) [address] [place] [address] [facility]Sco tt [facility] Fam Res Tm Red) TELE CONSULT [id number] Notes Entered by: LJ SUAREZ 24 Mar 2016 1233 ------- ------- ------- ------- -- STAT Referra kristal garciaq/James gomez/618. 200.928 7/clm SÁNCHEZ NOLASCO 03/[address] [place] [address])(S [facility] Fam Res Tm Red) [address] [place] [address])(Sco tt [facility] Fam Res Tm Red) TELE CONSULT [id number] Notes Entered by: Rachna NOLASCO 25 Mar 2016 1419 ------- ------- ------- ------- -- Paper in your box. EMMY ARROYO 03/[address] [place] [address])(S [facility] Fam Res Tm Red) [address] [place] [address])([facility] Fam Res Tm Red) TELE CONSULT [id number] Notes Entered by: LJ SUAREZ 15 Apr 2016 1238 ------- ------- ------- ------- -- Heart monitor results /Lali/ /SÁNCHEZ Orta lm 04/[address] [place] [address])(S [facility] Fam Res Tm Red) [address] [place] [address])(Iao [facility] Fam Res Tm Red) TELE CONSULT [id number] Notes Entered by: TANIA BARNES 20 Apr 2016 1106 ------- ------- ------- ------- -- Network Results -CARDIO LOGY 04/07/16 HOLTER YINKA FAITH 04/[address] [place] [address])(S [facility] Fam Res Tm Red) [address] [place] [address])(Sco [facility] Fam Res Tm Red) OUTPATIENT [id number] f/u palpita tions EMMY ARROYO 04/23 Released w/o Limitations Medical Group [facility]ong JACKSON ([facility])(S cott [facility] Fam Res Tm Red) [facility] SMITHB ([facility])(OF C OP) OUTPATIENT [id number] f/u BHOP [id number] DONYA KIRKPATRICKANA S 04/28 Released w/o Limitations Medical Group [employer]ogn SMITHB ([facility])([facility] BHOP) [facility] SMITHB ([facility])(OF C OP) OUTPATIENT [id number] follow up KIRKPATRICK, EMMY S 05/13 Released w/o Limitations Medical Group [facility]ong SMITHB ([facility])(O C BHOP) [facility] SMITHB ([facility])(Sco tt [facility] Fam Res Tm Red) OUTPATIENT [id number] Abdomin al Pain, EMMY ARROYO 05/18 Released w/o Limitations [facility] Group Phong JACKSON ([facility])(S cott [facility] Fam Res Tm Red) [facility] SMITHB ([facility])(Med ication Refill Clinic) TELE CONSULT [id number] Notes Entered by: BELKYS MARTINEZ 23 Jun 2016 1453 ------- ------- ------- ------- -- Med Renewal /LALI/ EMMY ARROYO 06/[address] [place] [address] Group Phong SARAHB ([facility]) [address] [place] [address] Group Phong SMITHB ([facility])(Sco tt [facility] Fam Res Tm Red) TELE CONSULT [id number] Notes Entered by: Pranav ROSENTHAL 01 Jul 2016 1512 ------- ------- ------- ------- -- Medical Advice - SX - L Big Toenail Issue / Lali/ Jarred # - ajSTAR Montero 07/01 Referred for Appointment [address] [place] [address] Group Phong SMITHB ([facility])(S cott [facility] Fam Res Tm Red) [address] [place] [address] [employer] ([facility]Sco tt [facility] Fam Res Tm Red) OUTPATIENT [id number] Left big toe nail MADALYN REYES 07/01 Released w/o Limitations [address] [place] [address] Phong [facility])(S cott [facility] Fam Res Tm Red) [address] [place] [address] Phong [facility])(Sco tt [facility] Fam Res Tm Green) TELE CONSULT [id number] Notes Entered by: CAMERON,TANIA Becker 25 Aug 2016 1212 ------- ------- ------- ------- -- Network Results -GASTRO ENTEROL OGY 06/10/16 SDG EMMY ARROYO 08/[address] [place] [address] Phong [facility])(S cott [facility] Fam Res Tm Green) [address] [place] [address] Phong [facility])(Sco tt [facility] FAMRES Tm Blue) TELE CONSULT [id number] Notes Entered by: AMBER LINDSAY 08 Sep 2016 1108 ------- ------- ------- ------- -- Network results Gastroe nterolo gy 7 MMM EMMY ARROYO 09/[address] [place] [address] Phong [facility])(S cott [facility] FAMRES Tm Blue) [address] [place] [address] Phong [facility])(Min or Procedure Clinic) OUTPATIENT [id number] Left toenail removal IDALIAROOPA CASEJOSE Urban 09/08 Released w/o Limitations [address] [place] [address] Phong [facility])(M inor Procedu re Clinic) [address] [place] [address] Phong [facility])(Med ication Refill Clinic) TELE CONSULT [id number] Notes Entered by: RODNEY ZENDEJAS 10 Sep 2016 0911 ------- ------- ------- ------- -- Med Renewal / Lali / [phone] 7 / - sgj SÁNCHEZ NOLASCO 09/[address] [place] [address] Phong [facility])(M edicati on Refill Clinic) [address] [place] [address] Phong [facility])(Sco tt [facility] Fam Res Tm Green) TELE CONSULT [id number] Notes Entered by: GIST,SH DIAZ Becker 13 Sep 2016 0904 ------- ------- ------- ------- -- Network Results -GASTRO ENTEROL OGY 07/19/16 EMMY PENNINGTON 09/[address] [place] [address] Phong [facility])(S cott [facility] Fam Res Tm Green) [address] [place] [address] Phong [facility])(Sco tt [facility] Fam Res Tm Green) TELE CONSULT [id number] Notes Entered by: BOB BRENNAN 16 Sep 2016 1320 ------- ------- ------- ------- -- F/U special ty - Keron Arroyo - [phone] - EMMY Ojeda 09/[address] [place] [address] Phong [facility])(S cott [facility] Fam Res Tm Green) [address] [place] [address] Phong [facility])(Sco tt [facility] FAMRES Tm Blue) TELE CONSULT [id number] Notes Entered by: Jaquelin JACOB 27 Sep 2016 0950 ------- ------- ------- ------- -- Network results Occupat ional/P hysical Therapy 03/09/16 EMMY THOMAS 09/[address] [place] [address] Phong [facility])(S cott [facility] FAMRES Tm Blue) [address] [place] [address] Phong [facility])(Sco tt [facility] Fam Res Tm Green) TELE CONSULT [id number] Notes Entered by: LJ SUAREZ 14 Oct 2016 1347 ------- ------- ------- ------- -- Referra kristal Hernandez/James gomez/200- 3272 or [phone] -[phone]/c SÁNCHEZ Linn 10/[address] [place] [address] Phong [facility])(S cott [facility] Fam Res Tm Green) [address] [place] [address] Phong [facility])(Sco tt [facility] Fam Res Tm Green) TELE CONSULT [id number] Notes Entered by: LJ SUAREZ 21 Oct 2016 1333 ------- ------- ------- ------- -- Referra l Req/James gomez/518- [phone] 1/clSÁNHCEZ Levy 10/[address] [place] [address] Phong [facility])(S cott [facility] Fam Res Tm Green) [address] [place] [address] Phong [facility])(Sco tt [facility] Fam Res Tm Green) TELE CONSULT [id number] Notes Entered by: RAD SONG 27 Oct 2016 1128 ------- ------- ------- ------- -- Referra kristal Request /Lali/ SÁNCHEZ NOLASCO 10/[address] [place] [address] Phong [facility])(S cott [facility] Fam Res Tm Green) [address] [place] [address] Phong [facility])(Sco tt [facility] Fam Res Tm Green) TELE CONSULT [id number] Notes Entered by: SUSANA WILD 02 Nov 2016 1022 ------- ------- ------- ------- -- Network results Gastroe nterolo gy 7 EMMY PEREZ 11/[address] [place] [address] Phong [facility])(S cott [facility] Fam Res Tm Green) [address] [place] [address] Phong [facility])(Sco tt [facility] Fam Res Tm Green) TELE CONSULT [id number] Notes Entered by: MEÑO RAM RET 09 Nov 2016 1401 ------- ------- ------- ------- -- MRI Request /Lali/ [facility] SÁNCHEZ NOLASCO 11/[address] [place] [address] Phong [facility])(S cott [facility] Fam Res Tm Green) [address] [place] [address] Phong [facility])(Sco tt Internal Medicine Tm) TELE CONSULT [id number] Notes Entered by: LJ SUAREZ 01 Dec 2016 1358 ------- ------- ------- ------- -- MRI results to special ist/James gomez/618. 365.654 0/clm SÁNCHEZ NOLASCO 12/[address] [place] [address] Phong [facility])(S cott Interna l Medicin e Tm) [address] [place] [address] Phong [facility])(Sco tt [facility] Fam Res Tm Green) OUTPATIENT [id number] discuss med change for acid reflux [id number] ALPHONSE BEE 01/20 Released w/o Limitations [address] [place] [address])(S cott [facility] Fam Res Tm Green) [address] [place] [address])(Sco tt [facility] Fam Res Tm Green) TELE CONSULT [id number] Notes Entered by: BOB BRENNAN 28 Jan 2017 1055 ------- ------- ------- ------- -- Problem with [employer] - Lali - - tsg ALPHONSE BEE 01/[address] [place] [address])(S cott [facility] Fam Res Tm Green) [address] [place] [address])(Sco tt [facility] Fam Res Tm Green) TELE CONSULT [id number] Notes Entered by: MILAGRO HELTON 02 Feb 2017 1226 ------- ------- ------- ------- -- Script req/james gomez/877. 363.130 3 mnm ALPHONSE BEE 02/[address] [place] [address])(S cott [facility] Fam Res Tm Green) [address] [place] [address])(Sco tt [facility] Fam Res Tm Green) TELE CONSULT [id number] Notes Entered by: LJ SUAREZ 04 Feb 2017 1029 ------- ------- ------- ------- -- Written prescri ption pickup/ Lali/5 [phone]- 3321/cl ALPHONSE Akhtar 02/[address] [place] [address] Phong [facility] ([facility])(S cott [facility] Fam Res Tm Green) [address] [place] [address] Phong [facility])(Sco tt [facility] Fam Res Tm Green) TELE CONSULT [id number] Notes Entered by: RAD SONG 16 Mar 2017 1507 ------- ------- ------- ------- -- Lab Request /Lali/ SÁNCHEZ NOLASCO 03/[address] [place] [address] Phong [facility])(S cott [facility] Fam Res Tm Green) [address] [place] [address] Phong [facility])(Sco tt [facility] Fam Res Tm Green) OUTPATIENT [id number] Physica l, f/u on labs, CRISTIANA YEBOAH 03/24 Released w/o Limitations [address] [place] [address] Phong [facility])(S cott [facility] Fam Res Tm Green) [address] [place] [address] Phong [facility])(Sco tt [facility] Fam Res Tm Green) OUTPATIENT [id number] X-ray, lab f/u RCISTIANA YEBOAH 04/21 Released w/o Limitations [address] [place] [address] Phong [facility])(S cott [facility] Fam Res Tm Green) [address] [place] [address] Phong [facility])(Sco tt [facility] Fam Res Tm Green) OUTPATIENT [id number] both ear bothers ome; wax build-u p/skin tags MASHA ABAD 07/19 Released w/o Limitations [address] [place] [address] Phong [facility])(S cott [facility] Fam Res Tm Green) [address] [place] [address] Phong [facility])(Sco tt [facility] Fam Res Tm Green) OUTPATIENT [id number] dermato tito refer l/med renewal s/ ELLEN CRAFT 10/04 Released w/o Limitations [address] [place] [address] Phong [facility])(S cott [facility] Fam Res Tm Green) [employer] ([facility])(Sco tt [facility] Fam Res Tm Green) TELE CONSULT [id number] Notes Entered by: LJ SUAREZ 28 Nov 2017 1140 ------- ------- ------- ------- -- Dermato logy Referra l Req/James gomez/618. 559.771 1/darlyn ELLEN CRAFT 11/28 Referred for Appointment [facility] [employer] ([facility])(S cott [facility] Fam Res Tm Green) [facility] [employer] ([facility])(Sco tt [facility] Fam Res Tm Green) TELE CONSULT [id number] Notes Entered by: RAD SONG 02 Dec 2017 1046 ------- ------- ------- ------- -- Referra l Request s/Lali / ELLEN CRAFT 12/02 Referred for Appointment [facility] [employer] ([facility])(S cott [facility] Fam Res Tm Green) [facility] [employer] ([facility])(Sco tt [facility] Fam Res Tm Green) TELE CONSULT [id number] 1 Notes Entered by: DRISS SON 20 Dec 2017 1555 ------- ------- ------- ------- -- Referra l request /lali/ SÁNCHEZ Le 12/20 Referred for Appointment [facility] [employer] ([facility])(S cott [facility] Fam Res Tm Green) [facility] [employer] ([facility])(Sco tt [facility] Fam Res Tm Green) TELE CONSULT [id number] Notes Entered by: LJ SUAREZ 09 Jan 2018 1234 ------- ------- ------- ------- -- Sx Persist /ER F/U/Cag le/559. 7711/SÁNCHEZ Sin 01/09 Referred for Appointment [facility] [employer] [facility])(S [facility] Fam Res Tm Green) [facility] [facility])(Sco tt [facility] Res Tm Green) OUTPATIENT [id number] 7 ER F/U ([facility], 05 Jan 2018) dizzine ss / PANKAJELLEN POLANCO Wilmar 01/12 Released w/o Limitations [address] [place] [address] Phong [facility])(S [facility] Fam Res Tm Green) [address] [place] [address] Phong [facility])(Sco tt [facility] Res Tm Green) TELE CONSULT [id number] 1 Notes Entered by: BIANCA FARFAN 22 Mar 2018 1113 ------- ------- ------- ------- -- Med Renewal Request / Lali/ - SÁNCHEZ Burr 03/22 Referred for Appointment [address] [place] [address] Group [employer] [facility])(S [facility] Res Tm Green) [address] [place] [address] Phong [facility])(Sco tt [facility] Res Green) TELE CONSULT [id number] 5 Notes Entered by: LJ SUAREZ 21 Apr 2018 0813 ------- ------- ------- ------- -- Med Renewal /Lali/ /c ZULY Avila 04/21 Referred for Appointment [address] [place] [address] [facility]ong [facility])(S [facility] Fam Res Tm Green) [address] [place] [address] [facility]ong [facility])(Sco tt [facility] Res Tm Green) OUTPATIENT [id number] 6 Nausea, vomitin g, diarrhe a, 559.771 9 DEIDRE PERRY 05/16 Released w/o Limitations [address] [place] [address] Phong [facility])(S cott [facility] Fam Res Tm Green) [address] [place] [address] [facility])(Sco tt [facility] Fam Res Tm Green) OUTPATIENT [id number] L Lower calf skin growth 618.559 ..7711 ARMIDA RIGGS 05/30 Released w/o Limitations [address] [place] [address] [employer] [facility] ([facility])(S cott [facility] Fam Res Tm Green) [address] [place] [address] [employer] [facility] ([facility])(Sco tt [facility] Fam Res Tm Green) OUTPATIENT [id number] 2 F/U skin issue on leg MIO TORRES 06/15 Released w/o Limitations [address] [place] [address] [employer]ong [facility] ([facility])(S cott [facility] Fam Res Tm Green) [address] [place] [address] Phong [facility])(Sco tt [facility] Fam Res Tm Green) TELE CONSULT [id number] 1 Notes Entered by: CHARY HENSLEY 20 Jun 2018 1048 ------- ------- ------- ------- -- Cancel Madeline - Lali - [phone] -[phone] EMMY Escobedo 06/[address] [place] [address] Phong [facility]S cott [facility] Fam Res Tm Green) [address] [place] [address] [facility])(Sco tt [facility] Fam Res Tm Green) OUTPATIENT [id number] 06/28 Released w/o Limitations [address] [place] [address] Phong [facility])(S cott [facility] Fam Res Tm Green) [address] [place] [address] Phong [facility])(Sco tt [facility] Fam Res Tm Green) TELE CONSULT [id number] 5 Notes Entered by: DRISS SON 03 Aug 2018 1119 ------- ------- ------- ------- -- Med inquiry /lali/ SÁNCHEZ Le 08/03 Referred for Appointment [address] [place] [place] [address] Group [employer] [facility])(S cott [facility] Fam Res Tm Green) [address] [place] [address] [employer]ong [facility])(Sco tt [facility] Fam Res Tm Green) TELE CONSULT [id number] Notes Entered by: HAZEL MAYER 01 Sep 2018 1049 ------- ------- ------- ------- -- New Prescri ptshon / Dr Arroyo / [id number]/ MAXIMO MAURICERIA 09/01 Referred for Appointment [address] [place] [place] [address] Group [employer] [facility])(S cott [facility] Fam Res Tm Green) [address] [place] [place] [address] Group [employer] [facility])(Sco tt [facility] Fam Res Tm Green) OUTPATIENT [id number] Needs to have ears irrigat ed [id number] ARMIDA RIGGS [facility] 10/09 Released w/o Limitations [address] [place] [address] Phong [facility])(S cott [facility] Fam Res Tm Green) [address] [place] [address] [facility]ong [facility])(Sco tt [facility] Fam Res Tm Green) OUTPATIENT [id number] 2 F/U on ears ARMIDA RIGGS [facility] 11/01 Released w/o Limitations [address] [place] [place] [address] Group [employer] [facility])(S cott [facility] Fam Res Tm Green) [address] [place] [address] Phong [facility])(Sco tt [facility] Fam Res Tm Green) TELE CONSULT [id number] 5 Notes Entered by: RAD SONG 28 Dec 2018 0954 ------- ------- ------- ------- -- Med Renewal /Lali/ SÁNCHEZ NOLASCO 12/28 Medication Refill Forwarded [address] [place] [address] Phong [facility])(S cott [facility] Fam Res Tm Green) [address] [place] [address] Phong [facility])(Sco tt [facility] Fam Res Tm Green) TELE CONSULT [id number] 7 Notes Entered by: RAD SONG 23 Feb 2019 1243 ------- ------- ------- ------- -- Prescri ption Issue/C agle/61 [phone] SÁNCHEZ NOLASCO 02/23 Other Not Elsewhere Classified [address] [place] [place] [address] Group [employer] [facility])(S cott [facility] Fam Res Tm Green) [address] [place] [address] Phong [facility])(Sco tt [facility] Fam Res Tm Green) TELE CONSULT [id number] Notes Entered by: BIANCA FARFAN 13 Aug 2019 1251 ------- ------- ------- ------- -- Med Renewal Request / Lali/ - ajh SÁNCHEZ NOLASCO 08/12 Medication Refill Forwarded [address] [place] [address] Phong [facility])(S cott [facility] Fam Res Tm Green) [address] [place] [address] Phong [facility])(Sco tt [facility] Fam Res Tm Green) TELE CONSULT [id number] Notes Entered by: RODNEY ZENDEJAS 15 Oct 2019 1449 ------- ------- ------- ------- -- Med Renewal / Rachel / [phone] - sgj SÁNCHEZ NOLASCO 10/14 Referred for Appointment [address] [place] [address] Phong SMITHGilberto [facility])(S cott [facility] Fam Res Tm Green) [address] [place] [address] Phong [facility])(Sco tt [facility] Fam Res Tm Green) OUTPATIENT [id number] IN PERSON: annual physica l/lab review SVETLANA HUGHES 11/06 Released w/o Limitations [address] [place] [address] Phong [facility])(S cott [facility] Fam Res Tm Green) [address] [place] [address] Phong [facility])(Sco tt [facility] Reflektion Res Tm Green) TELE CONSULT [id number] 7 Notes Entered by: LIBBY TAVERAS 12 Nov 2019 0923 ------- ------- ------- ------- -- Med Questio n/Keila acosta/618. 559.771 1 SVETLANA HUGHES 11/[address] [place] [address] Phong SARAHGilberto [facility])(S cott [facility] Fam Res Tm Green) [address] [place] [address])([facility] Medicine) OUTPATIENT [id number] Body mass index [BMI] STEFFANIE HERNANDEZ 11/20 Released w/o Limitations [address] [place] [address] Phong SARAHGilberto [facility])(N utritio nal Medicin e) [address] [place] [address] Phong [facility])(Sco tt [facility] Fam Res Tm Green) TELE CONSULT [id number] 7 Notes Entered by: LIBBY TAVERAS 13 Dec 2019 1400 ------- ------- ------- ------- -- Keron Delgado and Rx Renewal /Schelb y/ SÁNCHEZ NOLASCO 12/12 Medication Refill Forwarded [address] [place] [address] Phong [facility])(S cott [facility] Fam Res Tm Green) [address] [place] [address])(Sco tt [facility] Res Tm Green) TELE CONSULT [id number] Notes Entered by: RODNEY ZENDEJAS 24 Dec 2019 1134 ------- ------- ------- ------- -- Med Renewal - Would Like to Get on Dec / Rachel / - VIELKA Vines 12/23 Medication Refill Forwarded [address] [place] [address] Phong [facility])(S cott [facility] Fam Res Tm Green) [address] [place] [address])(Sco tt [facility] FAMRES Tm Blue) TELE CONSULT [id number] Notes Entered by: Pranav PASCAL 01 Jan 2020 1359 ------- ------- ------- ------- -- Network results Dermato logy 020 SVETLANA PINEDO 12/[address] [place] [address] Phong [facility])(S cott [facility] FAMRES Tm Blue) [address] [place] [address])(Sco tt [facility] Fam Res Tm Green) TELE CONSULT [id number] 7 Notes Entered by: BIANCA FARFAN 01 Feb 2020 1223 ------- ------- ------- ------- -- Med Renewal Request / Schekristalby / - FIOR Heaton 01/31 Medication Refill Forwarded [address] [place] [address] Phong B [facility])(S cott [facility] Fam Res Tm Green) [address] [place] [address])(Sco tt [facility] Fam Res Tm Green) OUTPATIENT [id number] 1 FTF-LEf t knee pain x 2 days-61 8.559.7 711 OMEGA RILEY 04/28 Released w/o Limitations [address] [place] [address] Ph[facility])(S cott [facility] Fam Res Tm Green) [address] [place] [address] Phong [facility])(Sco tt [facility] Res Tm Green) TELE CONSULT [id number] Notes Entered by: ANIKA MURPHY 20 May 2020 1457 ------- ------- ------- ------- -- X-Ray Results OMEGA RILEY 05/20 Referred for Appointment [address] [place] [address] Phong [facility])(S cott [facility] Res Tm Green) [address] [place] [address] Phong [facility])(Sco tt [facility] Res Tm Green) OUTPATIENT [id number] F2F - L knee pain, NYA DENG 06/30 Released w/o Limitations [address] [place] [address] Phong [facility])(S cott [facility] Res Tm Green) [address] [place] [address] Phong [facility])(Sco tt [facility] Green) TELE CONSULT [id number] Notes Entered by: BOB BRENNAN 23 Sep 2020 1453 ------- ------- ------- ------- -- Issue with medicat ion - Rachel - [phone] - tsg SÁNCHEZ NOLASCO 09/23 Released to Self [facility] [address] [place] [address] Phong [facility])(S cott [facility] Res Tm Green) [address] [place] [address] Phong [facility])(Sco tt [facility] Res Green) TELE CONSULT [id number] 5 Notes Entered by: BIANCA FARFAN 16 Dec 2020 1238 ------- ------- ------- ------- -- Med Renewal Request / Rachel / SÁNCHEZ NOLASCO 12/16 Medication Refill Forwarded [address] [place] [address] Phong [facility])(S cott [facility] Fam Res Tm Green) [address] [place] [address] Phong [facility])(Sco tt [facility] Res Tm Green) OUTPATIENT [id number] F2F: annual physica l/lab review [phone] SARATH ABREU 01/14 Released w/o Limitations [address] [place] [address] Phong [facility])(S cott [facility] Fam Res Tm Green) [address] [place] [address] [facility]ong [facility])(Sco tt [facility] Res Tm Green) TELE CONSULT [id number] Notes Entered by: RENATA TORRES 18 Feb 2021 0940 ------- ------- ------- ------- -- Rx refill/ Rachel / KANDACE LAW 02/18 Medication Refill Forwarded [address] [place] [address])(S cott [facility] Fam Res Tm Green) [address] [place] [address])(Sco tt [facility] Res Tm Green) TELE CONSULT [id number] Notes Entered by: BIANCA FARFAN 11 Mar 2021 1345 ------- ------- ------- ------- -- Med Renewal Request / Rachel / SVETLANA HUGHES 03/[address] [place] [address] Phong [facility])(S cott [facility] Fam Res Tm Green) [address] [place] [address] Phong [facility])(Sco tt [facility] Res Tm Green) TELE CONSULT [id number] 6 Notes Entered by: RENATA TORRES 13 Mar 2021 0855 ------- ------- ------- ------- -- Check on Prescri ption/ Rachel / SÁNCHEZ NOLASCO 03/13 Other Not Elsewhere Classified [address] [place] [address] [facility])(S cott [facility] Res Tm [place]) [address] [place] [address] [facility])(Sco tt [facility] Fam Res [place]m [place]) TELE CONSULT [id number] 5 Notes Entered by: BIANCA FARFAN 16 Mar 2021 1300 ------- ------- ------- ------- -- PCM [place] Return Call/ Schelby / SÁNCHEZ NOLASCO 03/16 Medication Refill Forwarded [address] [place] [address] [facility])(S cott OF Fam Res [place]m [place]) [address] [place] [address] [facility])(Sco tt [facility] Fam Res [place]) TELE CONSULT [id number] Notes Entered by: BIANCA FARFAN 28 Jul 2021 1412 ------- ------- ------- ------- -- F/U Appt Request - [facility] F/U -SX- [facility] / [phone] SÁNCHEZ NOLASCO 07/28 Referred for Appointment [address] [place] [address] [facility])(S cott [facility] Fam Res [place]) [address] [place] [address] [facility])(Sco tt [facility] FAMRES Tm Blue) OUTPATIENT [id number] VIRTUAL : elevate d blood pressur e ROSMERY DODD 07/30 Released w/o Limitations [address] [place] [address] [facility])(S cott [facility] FAMRES Tm Blue) [address] [place] [address] [facility])(Sco tt [facility] FAMRES Tm Blue) OUTPATIENT [id number] VIRTUAL - persist ent cough, allergy medicat ion? ROSMERY DODD 08/06 Released w/o Limitations [address] [place] [address] [facility])(S cott [facility] FAMRES Tm Blue) [address] [place] [address] [facility])(Sco tt [facility] Fam Res [place]m [place]) TELE CONSULT [id number] 8 Notes Entered by: MAGY REGAN 23 Oct 2021 1208 ------- ------- ------- ------- -- Phone Call Request / Anca/ RECINOSFIOR MANJARREZ ROMA 10/23 Medication Refill Forwarded [address] [place] [address] [facility])(S cott [facility] Fam Res [place]m [place]) [address] [place] [address] [facility])(Sco tt [facility] Res [place]) TELE CONSULT [id number] Notes Entered by: RAD SONG 11 Feb 2022 1526 ------- ------- ------- ------- -- Med Renewal /Schelgilberto y/ ROWDY NATHAN 02/11 Released to [facility] Care [address] [place] [address])(S [facility] Res Tm [place]) [address] [place] [address])(Sco tt [facility] Res [place]m [place]) TELE CONSULT [id number] Notes Entered by: TANIA JUSTICE 18 Feb 2022 0934 ------- ------- ------- ------- -- Out of Meds Refill Request / Rachel / [phone] SVETLANA HUGHES 02/[address] [place] [address] [facility])(S [facility] Res [place]m [place]) [address] [place] [address] [facility])(Sco tt [facility] Fam Res [place]m [place]) OUTPATIENT [id number] RX F/U and annual exam,[phone] f2f appt MECCA OROZCO 04/09 Released w/o Limitations [address] [place] [address] [facility])(S [facility] Fam Res [place]m [place]) [address] [place] [address] [facility])(Sco tt [facility] Res griddig Green) TELE CONSULT [id number] Notes Entered by: MECCA OROZCO 30 Apr 2022 1411 ------- ------- ------- ------- -- Lab Results MECCA OROZCO 04/30 Released to Self Care [address] [place] [address] [facility])(S cott [facility] Fam Res [place]) [address] [place] [address] [facility])(Sco tt [facility] Fam Res [place]) TELE CONSULT [id number] 6 Notes Entered by: MECCA OROZCO 04 May 2022 1620 ------- ------- ------- ------- -- Vitamin D Deficie ncy MECCA OROZCO 05/04 Released to Self Care [address] [place] [address] [facility])(S cott [facility] Fam Res [place]) [address] [place] [address] [facility])(Sco tt [facility] Fam Res [place]) OUTPATIENT [id number] stomach pain abdomin al through to back 3-4 days [phone] MASHA TEJADA 05/12 Released w/o Limitations [address] [place] [address] [facility])(S cott [facility] Fam Res [place]) [address] [place] [address] [facility])(Sco tt [facility] Fam Res [place]) TELE CONSULT [id number] 1 Notes Entered by: Wilmar VYAS 19 May 2022 1510 ------- ------- ------- ------- -- SX: Persist CT Results /Schelb y/ SÁNCHEZ NOLASCO 05/19 Referred for Appointment [address] [place] [address] [facility])(S cott [facility] Fam Res [place]) [address] [place] [address] [facility])(Sco tt [facility] Fam Res [place]) OUTPATIENT [id number] F2F: discuss CT results , abd pain persist s [phone] FELIPE LAFLEUR 05/20 Released w/o Limitations [address] [place] [address] [facility])(S cott OF Fam Res [place] [place]) [address] [place] [address] [facility])(Sco tt [facility] FAMRES Tm Blue) TELE CONSULT [id number] 3 Notes Entered by: FELIPE LAFLEUR 21 May 2022 1645 ------- ------- ------- ------- -- Lab Results FELIPE LAFLEUR Lilia 05/21 Released to Self [facility] [address] [place] [address])(S cott [facility] FAMRES Tm Blue) [address] [place] [address])(Sco tt [facility] Fam Res [place]m [place]) TELE CONSULT [id number] 6 Notes Entered by: TANIA JUSTICE 24 May 2022 1125 ------- ------- ------- ------- -- RX Renewal Request / Rachel / [phone] JUANITA REY 05/24 Medication Refill Forwarded [address] [place] [address])(S cott [facility] Fam Res [place]) [address] [place] [address])(Sco tt [facility] Fam Res [place]m [place]) TELE CONSULT [id number] 6 Notes Entered by: BOBBY MORELOS 25 May 2022 1416 ------- ------- ------- ------- -- Network results Gastroe nterolo gy 023 MECCA NAVARRETE 05/25 Released to [facility] [address] [place] [address])(S cott [facility] Fam Res [place]) [address] [place] [address])(Sco tt [facility] Fam Res [place]m [place]) TELE CONSULT [id number] 8 Notes Entered by: BOB BRENNAN 26 May 2022 1026 ------- ------- ------- ------- -- Rx renewal - 3 days left - Scherebekah - [phone] - MASHA Crowder 05/[address] [place] [address])(S cott [facility] Fam Res [place]m [place]) [address] [place] [address])(Sco tt [facility] Fam Res [place]m Green) OUTPATIENT [id number] F2F - right leg pain, inmobil ity issues, [phone] LISHA BLACK 07/13 Released w/o Limitations [facility] ([facility])(S efraín [facility] Fam Res [place]m [place]) [facility] INTRM OPH EXAM EST PATIENT [id number] Diagnos is: ICD-10- CM 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, left eye, severe stage GEORGE,J DANIKA B III 09/22 [facility] OFF/OP EST MAY X REQ PHY/QHP [id number] Diagnos is: ICD-10- CM G47.33 Obstruc tive sleep apnea (adult) (pediat chana) SRIRAM AMATO G 09/22 [facility] Outpatient Encounter [id number] 10/10 [facility] Outpatient Encounter [id number] YJOTI BROWN R 10/12 [facility] EXTENDED VISUAL FIELD XM [id number] Diagnos is: ICD-10- CM 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, left eye, severe stage CATRINAPranav SCOTT S 10/20 [facility] Outpatient Encounter [id number] 10/20 [facility] OFFICE O/P EST LOW 20 MIN [id number] [id number] Diagnos is: ICD-10- CM H40.131 1 Pigment vijay glaucom a, right eye, mild stage JOHNSON,AUGUS PERI 10/20 [facility] Outpatient Encounter [id number] ANJEL BYERS HI 11/29 [facility] OFFICE O/P EST MOD 30 MIN [id number] Diagnos is: ICD-10- CM K21.9 Gastro- esophag eal reflux disease without esophag itis BETO ARCEO R 12/11 [facility] Outpatient Encounter [id number] 12/14 [facility] Outpatient Encounter [id number] 12/26 [facility] Outpatient Encounter [id number] JYOTI BROWN R 12/27 [facility] Outpatient Encounter [id number] STEPHANIEJYOTI JANETTE R 12/27 [facility] OFFICE O/P NEW LOW 30 MIN [id number] [id number] Diagnos is: ICD-10- CM H61.23 lisa Tenorio RENE E J 01/18 [facility] Outpatient Encounter [id number] 02/01 [facility] OFF/OP EST MAY X REQ PHY/QHP [id number] Diagnos is: ICD-10- CM K21.9 Gastro- esophag eal reflux disease without esophag itis JYOTI BROWN R 02/02 [facility] Outpatient Encounter [id number] Diagnos is: ICD-10- CM K21.9 Gastro- esophag eal reflux disease without esophag itis Shruthi ALEMAN 02/08 [facility] Outpatient Encounter [id number] 02/16 [facility] Outpatient Encounter [id number] 04/17 [facility] OFFICE O/P EST HI 40 MIN [id number] [id number] Diagnos is: ICD-10- CM 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 [id number] Diagnos is: ICD-10- CM H40.131 1 Pigment vijay glaucom a, right eye, mild stage Wilmar VIEYRA M 06/15 [facility] Outpatient Encounter [id number] MODESTA,NID HI 06/26 [facility] Outpatient Encounter [id number] MODESTA,NID HI 08/21 [facility] OFFICE O/P EST MOD 30 MIN [id number] Diagnos is: ICD-10- CM K21.9 Gastro- esophag eal reflux disease without esophag itis MODESTA,NID HI 08/30 [facility] Outpatient Encounter [id number] JYOTI BROWN 09/19 [facility] OFF/OP EST MAY X REQ PHY/QHP [id number] Diagnos is: ICD-10- CM E78.5 Hyperli pidemia , unspeci fied JYOTI BROWN R 09/19 [facility] Outpatient Encounter [id number] 09/19 [facility] Outpatient Encounter [id number] JYOTI BROWN R 10/01 [facility] Outpatient Encounter [id number] JYOTI BROWN R 10/09 [facility] EXTENDED VISUAL FIELD XM [id number] [id number] Diagnos is: ICD-10- CM 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, left eye, severe stage YAHAIRA,KAPOOR I M 10/12 [facility] Outpatient Encounter [id number] 10/12 [facility] OFFICE O/P EST MOD 30 MIN [id number] [id number] Diagnos is: ICD-10- CM 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, left eye, severe stage GEORGE,J DANIKA B III 10/12 [facility] Outpatient Encounter [id number] JYOTI BROWN R 10/12 [facility] Outpatient Encounter [id number] 10/16 [facility] Outpatient Encounter [id number] 10/19 [facility] PSYTX W PT 30 MINUTES [id number] Diagnos is: ICD-10- CM F41.9 Anxiety disorde r, unspeci ALMAS Wynne T 11/06 [facility] 0055A-375 th MEDGRP-Sc blu Between Visit [id number] 11/07 Discharge Disposition: Home or Self Care 5A[facility] MEDGRPE[facility]ily Darling 0055A-375 th MEDGRP-Sc blu Between Visit [id number] 11/07 Discharge Disposition: Home or Self Care 5A-3 [facility] MEDJUDY Darling [facility] PSYTX W PT 30 MINUTES [id number] Diagnos is: ICD-10- CM F41.9 Anxiety disorde r, unspeci ALMAS Wynne T 12/11 [facility] PSYTX W PT 30 MINUTES [id number] Diagnos is: ICD-10- CM F41.9 Anxiety disorde r, unspeci ALMAS Wynne T 01/07 [facility] 0055C-375 th MED[facility]-Sc blu Clinic [id number] JD KIMBERLY 02/04 Discharge Disposition: Home or Self Care 5C-3 [facility] MEDGRPEmily Darling Procedures Combined list of: 1) Procedures from Department of Veterans Affairs facilities going back up to thelast 18 months, not all VA non-surgical procedures are included; 2) All procedures from the Department of Defense facilities. Procedure Procedure Type Code Date Perfomer Comments Sourc e No data available for this section [facility] TELE ASSESS & MGT SRV PROV QUAL NONPHYS HLTH CARE PRO TO EST PAT,PARENT,GUARD NOT ORIG REL ASSESS & MGT SRV PROV W/IN PREV 7 DAYS NOR LEAD ASSESS & MGT SRV/PX W/IN NXT 24 HR/SOON APT;5-10 MIN MED DIS 05/25/19 23 DoD DESTRUCTION (EG, LASER SURGERY, ELECTROSURGERY, CRYOSURGERY, CHEMOSURGERY, SURGICAL CURETTEMENT), OF BENIGN LESIONS OTHER THAN SKIN TAGS OR CUTANEOUS VASCULAR PROLIFERATIVE LESIONS; UP TO 14 LESIONS 05/14/19 23 DoD BRIEF COMM TECH-BASE SERV,E.G. VIRT CHK-IN,BY PHYS/OTH QUAL HCP,RPT E&M SERV,PROV TO EST PT,NOT ORIG FRM REL E/M SERV PROV W/IN PREV 7DAY NOR LEAD TO E/M SRV/PX W/IN NEXT 24HR/SOON TAMI; 5-10 MIN DISC 08/07/19 22 DoD BRIEF COMM TECH-BASE SERV,E.G. VIRT CHK-IN,BY PHYS/OTH QUAL HCP,RPT E&M SERV,PROV TO EST PT,NOT ORIG FRM REL E/M SERV PROV W/IN PREV 7DAY NOR LEAD TO E/M SRV/PX W/IN NEXT 24HR/SOON TAMI; 5-10 MIN DISC 08/01/19 22 DoD TELE ASSESS & MGT SRV PROV QUAL NONPHYS HLTH CARE PRO TO EST PAT,PARENT,GUARD NOT ORIG REL ASSESS & MGT SRV PROV W/IN PREV 7 DAYS NOR LEAD ASSESS & MGT SRV/PX W/IN NXT 24 HR/SOON APT;5-10 MIN MED DIS 03/16/19 22 DoD TELE ASSESS & MGT SRV PROV QUAL NONPHYS HLTH CARE PRO TO EST PAT,PARENT,GUARD NOT ORIG REL ASSESS & MGT SRV PROV W/IN PREV 7 DAYS NOR LEAD ASSESS & MGT SRV/PX W/IN NXT 24 HR/SOON APT;5-10 MIN MED DIS 12/17/19 21 DoD TELE ASSESS & MGT SRV PROV QUAL NONPHYS HLTH CARE PRO TO EST PAT,PARENT,GUARD NOT ORIG REL ASSESS & MGT SRV PROV W/IN PREV 7 DAYS NOR LEAD ASSESS & MGT SRV/PX W/IN NXT 24 HR/SOON APT;5-10 MIN MED DIS 09/24/19 21 DoD TELE ASSESS & MGT SRV PROV QUAL NONPHYS HLTH CARE PRO TO EST PAT,PARENT,GUARD NOT ORIG REL ASSESS & MGT SRV PROV W/IN PREV 7 DAYS NOR LEAD ASSESS & MGT SRV/PX W/IN NXT 24 HR/SOON APT;5-10 MIN MED DIS 02/01/20 20 DoD TELE ASSESS & MGT SRV PROV QUAL NONPHYS HLTH CARE PRO TO EST PAT,PARENT,GUARD NOT ORIG REL ASSESS & MGT SRV PROV W/IN PREV 7 DAYS NOR LEAD ASSESS & MGT SRV/PX W/IN NXT 24 HR/SOON APT;5-10 MIN MED DIS 12/13/19 20 DoD MEDICAL NUTRITION THERAPY; INITIAL ASSESSMENT AND INTERVENTION, INDIVIDUAL, CBYH-EW-IFYN WITH THE PATIENT, EACH 15 MINUTES 11/21/19 20 DoD TELE ASSESS & MGT SRV PROV QUAL NONPHYS HLTH CARE PRO TO EST PAT,PARENT,GUARD NOT ORIG REL ASSESS & MGT SRV PROV W/IN PREV 7 DAYS NOR LEAD ASSESS & MGT SRV/PX W/IN NXT 24 HR/SOON APT;5-10 MIN MED DIS 10/15/19 20 DoD TELE ASSESS & MGT SRV PROV QUAL NONPHYS HLTH CARE PRO TO EST PAT,PARENT,GUARD NOT ORIG REL ASSESS & MGT SRV PROV W/IN PREV 7 DAYS NOR LEAD ASSESS & MGT SRV/PX W/IN NXT 24 HR/SOON APT;5-10 MIN MED DIS 02/23/19 20 DoD REMOVAL IMPACTED CERUMEN USING IRRIGATION/LAVAGE, UNILATERAL 10/11/19 19 DoD REMOVAL OF SKIN TAGS, MULTIPLE FIBROCUTANEOUS TAGS, ANY AREA; UP TO AND INCLUDING 15 LESIONS 06/17/19 19 DoD REMOVAL IMPACTED CERUMEN USING IRRIGATION/LAVAGE, UNILATERAL 07/21/19 18 DoD TELE ASSESS & MGT SRV PROV QUAL NONPHYS HLTH CARE PRO TO EST PAT,PARENT,GUARD NOT ORIG REL ASSESS & MGT SRV PROV W/IN PREV 7 DAYS NOR LEAD ASSESS & MGT SRV/PX W/IN NXT 24 HR/SOON APT;5-10 MIN MED DIS 03/16/19 18 DoD TELE ASSESS & MGT SRV PROV QUAL NONPHYS HLTH CARE PRO TO EST PAT,PARENT,GUARD NOT ORIG REL ASSESS & MGT SRV PROV W/IN PREV 7 DAYS NOR LEAD ASSESS & MGT SRV/PX W/IN NXT 24 HR/SOON APT;5-10 MIN MED DIS 12/02/19 17 DoD TELE ASSESS & MGT SRV PROV QUAL NONPHYS HLTH CARE PRO TO EST PAT,PARENT,GUARD NOT ORIG REL ASSESS & MGT SRV PROV W/IN PREV 7 DAYS NOR LEAD ASSESS & MGT SRV/PX W/IN NXT 24 HR/SOON APT;5-10 MIN MED DIS 11/10/19 17 DoD TELE ASSESS & MGT SRV PROV QUAL NONPHYS HLTH CARE PRO TO EST PAT,PARENT,GUARD NOT ORIG REL ASSESS & MGT SRV PROV W/IN PREV 7 DAYS NOR LEAD ASSESS & MGT SRV/PX W/IN NXT 24 HR/SOON APT;5-10 MIN MED DIS 10/28/19 17 DoD TELE ASSESS & MGT SRV PROV QUAL NONPHYS HLTH CARE PRO TO EST PAT,PARENT,GUARD NOT ORIG REL ASSESS & MGT SRV PROV W/IN PREV 7 DAYS NOR LEAD ASSESS & MGT SRV/PX W/IN NXT 24 HR/SOON APT;5-10 MIN MED DIS 10/22/19 17 DoD TELE ASSESS & MGT SRV PROV QUAL NONPHYS HLTH CARE PRO TO EST PAT,PARENT,GUARD NOT ORIG REL ASSESS & MGT SRV PROV W/IN PREV 7 DAYS NOR LEAD ASSESS & MGT SRV/PX W/IN NXT 24 HR/SOON APT;5-10 MIN MED DIS 10/15/19 17 DoD TELE ASSESS & MGT SRV PROV QUAL NONPHYS HLTH CARE PRO TO EST PAT,PARENT,GUARD NOT ORIG REL ASSESS & MGT SRV PROV W/IN PREV 7 DAYS NOR LEAD ASSESS & MGT SRV/PX W/IN NXT 24 HR/SOON APT;5-10 MIN MED DIS 09/17/19 17 DoD TELE ASSESS & MGT SRV PROV QUAL NONPHYS HLTH CARE PRO TO EST PAT,PARENT,GUARD NOT ORIG REL ASSESS & MGT SRV PROV W/IN PREV 7 DAYS NOR LEAD ASSESS & MGT SRV/PX W/IN NXT 24 HR/SOON APT;5-10 MIN MED DIS 07/02/19 17 DoD TELE ASSESS & MGT SRV PROV QUAL NONPHYS HLTH CARE PRO TO EST PAT,PARENT,GUARD NOT ORIG REL ASSESS & MGT SRV PROV W/IN PREV 7 DAYS NOR LEAD ASSESS & MGT SRV/PX W/IN NXT 24 HR/SOON APT;5-10 MIN MED DIS 06/24/19 17 [facility] BRIEF EMOTIONAL/BEHAVIORA L ASSESSMENT (EG, DEPRESSION INVENTORY, ATTENTION-DEFICIT/H YPERACTIVITY DISORDER [ADHD] SCALE), WITH SCORING AND DOCUMENTATION, PER STANDARDIZED INSTRUMENT 05/14/19 17 [facility] BRIEF EMOTIONAL/BEHAVIORA L ASSESSMENT (EG, DEPRESSION INVENTORY, ATTENTION-DEFICIT/H YPERACTIVITY DISORDER [ADHD] SCALE), WITH SCORING AND DOCUMENTATION, PER STANDARDIZED INSTRUMENT 04/29/19 17 DoD TELE ASSESS & MGT SRV PROV QUAL NONPHYS HLTH CARE PRO TO EST PAT,PARENT,GUARD NOT ORIG REL ASSESS & MGT SRV PROV W/IN PREV 7 DAYS NOR LEAD ASSESS & MGT SRV/PX W/IN NXT 24H/SOON APT; 11-20 MIN MED DIS 04/16/19 17 DoD TELE ASSESS & MGT SRV PROV QUAL NONPHYS HLTH CARE PRO TO EST PAT,PARENT,GUARD NOT ORIG REL ASSESS & MGT SRV PROV W/IN PREV 7 DAYS NOR LEAD ASSESS & MGT SRV/PX W/IN NXT 24 HR/SOON APT;5-10 MIN MED DIS 03/24/19 17 DoD TELE ASSESS & MGT SRV PROV QUAL NONPHYS HLTH CARE PRO TO EST PAT,PARENT,GUARD NOT ORIG REL ASSESS & MGT SRV PROV W/IN PREV 7 DAYS NOR LEAD ASSESS & MGT SRV/PX W/IN NXT 24 HR/SOON APT;5-10 MIN MED DIS 03/19/19 17 DoD TELE ASSESS & MGT SRV PROV QUAL NONPHYS HLTH CARE PRO TO EST PAT,PARENT,GUARD NOT ORIG REL ASSESS & MGT SRV PROV W/IN PREV 7 DAYS NOR LEAD ASSESS & MGT SRV/PX W/IN NXT 24 HR/SOON APT;5-10 MIN MED DIS 12/03/19 16 DoD TELE ASSESS & MGT SRV PROV QUAL NONPHYS HLTH CARE PRO TO EST PAT,PARENT,GUARD NOT ORIG REL ASSESS & MGT SRV PROV W/IN PREV 7 DAYS NOR LEAD ASSESS & MGT SRV/PX W/IN NXT 24 HR/SOON APT;5-10 MIN MED DIS 06/26/19 16 [facility] MEDICAL NUTRITION THERAPY; INITIAL ASSESSMENT AND INTERVENTION, INDIVIDUAL, ZHGC-UV-ALOR WITH THE PATIENT, EACH 15 MINUTES 06/25/19 16 [facility] TELE ASSESS & MGT SRV PROV QUAL NONPHYS HLTH CARE PRO TO EST PAT,PARENT,GUARD NOT ORIG REL ASSESS & MGT SRV PROV W/IN PREV 7 DAYS NOR LEAD ASSESS & MGT SRV/PX W/IN NXT 24 HR/SOON APT;5-10 MIN MED DIS 12/18/19 15 DoD Skin Tag Removal Up To 15 Lesions Skin Tag Removal Up To 15 Lesions [id number] 06/17/19 19 MIO TORRES [facility] Cerumen Removal Right Ear Irrigation Incomplete Cerumen Removal Right Ear Irrigation Incomplete 20104 07/22/19 18 MASHA ABAD Destruction Of Benign Lesion By Cryosurgery Destruction Of Benign Lesion By Cryosurgery 60766 07/21/19 18 MASHA ABAD [facility] Non-Physician Phone Call To Patient/Provider Brief (5-10min) Non-Physician Phone Call To Patient/Provider Brief (5-10min) [id number] 03/16/19 18 SÁNCHEZ NOLASCO Non-Physician Phone Call To Patient/Provider Brief (5-10min) Non-Physician Phone Call To Patient/Provider Brief (5-10min) 65118 12/03/19 17 SÁNCHEZ NOLASCO Non-Physician Phone Call To Patient/Provider Brief (5-10min) Non-Physician Phone Call To Patient/Provider Brief (5-10min) [id number] 11/10/19 17 THAO JARRETT [facility] Non-Physician Phone Call To Patient/Provider Brief (5-10min) Non-Physician Phone Call To Patient/Provider Brief (5-10min) [id number] 10/28/19 17 SÁNCHEZ NOLASCO Non-Physician Phone Call To Patient/Provider Brief (5-10min) Non-Physician Phone Call To Patient/Provider Brief (5-10min) [id number] 10/23/19 17 SÁNCHEZ NOLASCO Non-Physician Phone Call To Patient/Provider Brief (5-10min) Non-Physician Phone Call To Patient/Provider Brief (5-10min) [id number] 10/15/19 17 SÁNCHEZ NOLASCO Non-Physician Phone Call To Patient/Provider Brief (5-10min) Non-Physician Phone Call To Patient/Provider Brief (5-10min) 24050 09/18/19 17 EMMY ARROYO [facility] Non-Physician Phone Call To Patient/Provider Brief (5-10min) Non-Physician Phone Call To Patient/Provider Brief (5-10min) 55213 07/02/19 17 STAR PEREZ [facility] Non-Physician Phone Call To Patient/Provider Brief (5-10min) Non-Physician Phone Call To Patient/Provider Brief (5-10min) [id number] 06/26/19 17 EMMY ARROYO [facility] Psychometric Emotional / Behavioral A e ment Psychometric Emotional / Behavioral Assessment 71356 05/15/19 17 EMMY KIRKPATRICK [facility] Psychometric Emotional / Behavioral A e ment Psychometric Emotional / Behavioral Assessment 69200 04/29/19 17 EMMY KIRKPATRICK [facility] Non-Physician Phone Call To Pt/Provider Intermed (11-20 min) Non-Physician Phone Call To Pt/Provider Intermed (11-20 min) [id number] 04/20/19 17 SÁNCHEZ NOLASCO [facility] Non-Physician Phone Call To Patient/Provider Brief (5-10min) Non-Physician Phone Call To Patient/Provider Brief (5-10min) [id number] 03/24/19 17 SÁNCHEZ NOLASCO [facility] Non-Physician Phone Call To Patient/Provider Brief (5-10min) Non-Physician Phone Call To Patient/Provider Brief (5-10min) [id number] 03/19/19 17 SÁNCHEZ NOLASCO [facility] Non-Physician Phone Call To Patient/Provider Brief (5-10min) Non-Physician Phone Call To Patient/Provider Brief (5-10min) [id number] 12/03/19 16 SÁNCHEZ NOLASCO [facility] Non-Physician Phone Call To Patient/Provider Brief (5-10min) Non-Physician Phone Call To Patient/Provider Brief (5-10min) [id number] 06/26/19 16 SÁNCHEZ NOLASCO [facility] Medical Nutrition Therapy Initial A e ment And Intervention Each 15 Minutes Medical Nutrition Therapy Initial Assessment And Intervention Each 15 Minutes [id number] 06/26/19 16 STEFFANIE HERNANDEZ [facility] Non-Physician Phone Call To Patient/Provider Brief (5-10min) Non-Physician Phone Call To Patient/Provider Brief (5-10min) [id number] 12/19/19 15 MAGALI RYAN [facility] Cerumen Removal Right Ear Irrigation Cerumen Removal Right Ear Irrigation [id number] ARMIDA RIGGS [facility] Cerumen Removal Left Ear Irrigation Cerumen Removal Left Ear Irrigation [id number] ARMIDA RIGGS [facility] Non-Physician Phone Call To Patient/Provider Brief (5-10min) Non-Physician Phone Call To Patient/Provider Brief (5-10min) [id number] SÁNCHEZ NOLASCO [facility] Medical Nutrition Therapy Initial A e ment And Intervention Each 15 Minutes Medical Nutrition Therapy Initial Assessment And Intervention Each 15 Minutes [id number] DAVIDSTEFFANIE CHUNG [facility] Waiver services; not otherwise specified (NOS) Waiver services; not otherwise specified (NOS) [id number] ROSMERY DODD Brief communication technology-based service, e.g. virtual check-in, by a physician or other qualified health care profe ional who can report evaluation and management services, provided to an established patient, not originating from a related E/M service provided within the previous 7 days nor leading to an E/M service or procedure within the next 24 hours or soonest available appointment; 5-10 minutes of medical discu ion Brief communication technology-based service, e.g. virtual check-in, by a physician or other qualified health hemodialysis patient care specialist who can report evaluation and management services, provided to an established patient, not originating from a related E/M service provided within the previous 7 days nor leading to an E/M service or procedure within the next 24 hours or soonest available appointment; 5-10 minutes of medical discussion G2012 ROSMERY DODD Social History Combined list of available smoking, tobacco, and other social history from Department of Defense and Veterans Affairs facilities. Social History Type Response Date Comment [facility] e Tobacco smoking status NHIS VA-TOBACCO NEVER USED 12/12/2023 [facility] History of tobacco use VA-TOBACCO NEVER USED 07/22/2022 [facility] Sex Representation 04/07/2022 Unknow n Organization History of tobacco use VA-TOBACCO NEVER USED 06/27/2020 [facility] History of tobacco use VA-TOBACCO NEVER USED 09/15/2018 [facility] History of tobacco use VA-TOBACCO NEVER USED 01/27/2018 [facility] Tobacco Cigarette use: Never-cigarette user. Other Tobacco use: Never-other tobacco user (not cigarettes). Ambulatory Pharmacy Sexual Orientation Ambula tory Pharmacy Gender identity Ambulator y Pharmacy This section is an empty social history section. DoD Assessment and Plan Combined list of future care activities from Department of Defense and Veterans Affairs facilities (e.g., assessment and plan notes, appointments, orders, and referrals). Additional future care activities may be listed in the Plan of Care section. Result Assessment and Plan Date Source Assessment and Plan Extracted from:Title : Imms Note Author: LORENZA HUTCHINS, EMT Date: 02/04/25 SCREENING CHECKLIST FOR CONTRAINDICATIONS TO VACCINES FOR ADULTS (Model based on DD Form 3111, April 2024) Patient presents to clinic to receive vaccines recommended per ACIP/CDC guideline standing orders (that are reviewed and approved by [facility]). Patient read the following screening information and truthfully answered all of the required questions. Questions answered YES required further explanation, but are not necessarily a contraindication to vaccination. There were no contraindications to vaccines provided in clinic today. Routine Immunization Screening Questionnaire: Adult (using DD Form 3111, April 2024 Model) 1. Are you sick today?No 2. Have you ever had a serious reaction after receiving a vaccination?No 3. Do you have allergies to medication, food, a vaccine component, or latex?No 4. Have you had a seizure or brain or other nervous system problem?No 5. Have you had a health problem involving heart, lung (e.g. asthma), kidney, or metabolic disease (e.g., diabetes), anemia, or other blood disorder?No 6. Do you, or a close family member, have cancer, leukemia, HIV/AIDS, or any other immune system problems?No 7. In the past 3 months, have you taken medications that weaken your immune system, such as prednisone or other steroids; anticancer drugs; biologic drugs for autoimmune diseases such as rheumatoid arthritis, Crohn's disease, or psoriasis or had radiation treatments?No 8. During the past year, have you received a transfusion of blood or blood products, or been given immune (gamma) globulin, or an anti-viral drug? 9. Have you had ( or are you the candidate for) your spleen removed, or do you have sickle cell anemia?No 10. Have you ever passed out (vasovagal syncope) during or after a previous immunization or blood draw?No 11. Have you received any vaccinations in the past 4 weeks?No 12. Are you or is there a chance that you could become in the next month?Not Applicable More details of the vaccination administered can be found in the patient s Immunization History under the Immunizations tab. Diagnosis: Encounter for immunization Comment: Other status: influenza vaccine (Fluzone High-Dose) [65 yr+] [id number] PF Prefilled Syringe IM suspension; 0.5 mL, IntraMuscular, Suspension-Injection, Vaccine, First Dose: 02/04/2025 09:54:00 BOTTOM CRANE OPERATOR, 02/04/2025 09:54:00 BOTTOM CRANE OPERATOR (Completed) by JD MANN MD, Pediatrics, Allergy Imadm Prq Id Subq/Im Njxs 1 Vaccine [id number]; 02/04/2025 09:53:00 BOTTOM CRANE OPERATOR, Encounter for immunization (Completed) by JD MANN MD, Pediatrics, Allergy End of Orders Extracted from:Title: [facility]- acute URI, med refill Author: TALAT CARROLL DO Date: 05/13/23 1. Acute URI (upper respiratory infection) Acute, afebrile, VS stable. Likely viral infection, home COIVD test neg but could be COVID, flu, or common cold. Recommended urgent care for testing if desired, otherwise OTC treatments can suffice. Will prescribe Afrin for congestion- cautioned on 3 days of use. Will prescribe decongestant/antitussive. Sent to [email or web address] in [place]. Follow up as needed Ordered: oxymetazoline nasal(Afrin 0.05% nasal spray), 2 spray(s), Nostril-Both, BID, # 15 mL, 0 total refill(s), Maintenance, 2 spray(s) Nostril-Both BID, Pharmacy: [facility] #[id number] [External Rx] dextromethorphan-guaifenesin(dextr omethorphan-guaifenesin 10 mg-100 mg/5 mL oral liquid), 5 mL, Oral, every 4 hr, PRN cough, not to exceed 6 doses/day, # 300 mL, 0 total refill(s), Maintenance, 5 mL Oral every 4 hr,PRN:cough,Instr:not to exceed 6 doses/day, Pharmacy: [facility] #[id number] [External Rx] 2. Bile stasis Chronic, controlled with Welchol 625mg (2 tab) TID w/meals. New script placed, may need prior auth. Sent to [facility] pharmacy. Needs vitamin D recheck, was low last year. Lipids and A1C last year were unremarkable, recheck in 1-2 years. Ordered: colesevelam(colesevelam 625 mg oral tablet), 2 tab, Oral, TID w/ Meals, # 540 tab(s), 3 total refill(s), Maintenance, 2 tab Oral TID w/ Meals, Pharmacy: [facility] [Not filled] Orders: Vitamin D 25-Hydroxy [id number] Future Scheduled TestsLaboratoryCreatinine Level 11/07/24 02/13/2025 [id number] [facility] and Plan Extracted from:Title : Imms Note Author: LORENZA HUTCHINS, EMT Date: 02/04/25 SCREENING CHECKLIST FOR CONTRAINDICATIONS TO VACCINES FOR ADULTS (Model based on DD Form 311, April 2024) Patient presents to clinic to receive vaccines recommended per ACIP/CDC guideline standing orders (that are reviewed and approved by [facility]). Patient read the following screening information and truthfully answered all of the required questions. Questions answered YES required further explanation, but are not necessarily a contraindication to vaccination. There were no contraindications to vaccines provided in clinic today. Routine Immunization Screening Questionnaire: Adult (using DD Form 3111, April 2024 Model) 1. Are you sick today?No 2. Have you ever had a serious reaction after receiving a vaccination?No 3. Do you have allergies to medication, food, a vaccine component, or latex?No 4. Have you had a seizure or brain or other nervous system problem?No 5. Have you had a health problem involving heart, lung (e.g. asthma), kidney, or metabolic disease (e.g., diabetes), anemia, or other blood disorder?No 6. Do you, or a close family member, have cancer, leukemia, HIV/AIDS, or any other immune system problems?No 7. In the past 3 months, have you taken medications that weaken your immune system, such as prednisone or other steroids; anticancer drugs; biologic drugs for autoimmune diseases such as rheumatoid arthritis, Crohn's disease, or psoriasis or had radiation treatments?No 8. During the past year, have you received a transfusion of blood or blood products, or been given immune (gamma) globulin, or an anti-viral drug? 9. Have you had ( or are you the candidate for) your spleen removed, or do you have sickle cell anemia?No 10. Have you ever passed out (vasovagal syncope) during or after a previous immunization or blood draw?No 11. Have you received any vaccinations in the past 4 weeks?No 12. Are you or is there a chance that you could become in the next month?Not Applicable More details of the vaccination administered can be found in the patient s Immunization History under the Immunizations tab. Diagnosis: Encounter for immunization Comment: Other status: influenza vaccine (Fluzone High-Dose) [65 yr+] [id number] PF Prefilled Syringe IM suspension; 0.5 mL, IntraMuscular, Suspension-Injection, Vaccine, First Dose: 02/04/2025 09:54:00 BOTTOM CRANE OPERATOR, 02/04/2025 09:54:00 BOTTOM CRANE OPERATOR (Completed) by JD MANN MD, Pediatrics, Allergy Imadm Prq Id Subq/Im Njxs 1 Vaccine [id number]; 02/04/2025 09:53:00 BOTTOM CRANE OPERATOR, Encounter for immunization (Completed) by JD MANN MD, Pediatrics, Allergy End of Orders Extracted from:Title: [facility]- acute URI, med refill Author: TALAT CARROLL DO Date: 05/13/23 1. Acute URI (upper respiratory infection) Acute, afebrile, VS stable. Likely viral infection, home COIVD test neg but could be COVID, flu, or common cold. Recommended urgent care for testing if desired, otherwise OTC treatments can suffice. Will prescribe Afrin for congestion- cautioned on 3 days of use. Will prescribe decongestant/antitussive. Sent to [facility] in [place]. Follow up as needed Ordered: oxymetazoline nasal(Afrin 0.05% nasal spray), 2 spray(s), Nostril-Both, BID, # 15 mL, 0 total refill(s), Maintenance, 2 spray(s) Nostril-Both BID, Pharmacy: [facility] #[id number] [External Rx] dextromethorphan-guaifenesin(dextr omethorphan-guaifenesin 10 mg-100 mg/5 mL oral liquid), 5 mL, Oral, every 4 hr, PRN cough, not to exceed 6 doses/day, # 300 mL, 0 total refill(s), Maintenance, 5 mL Oral every 4 hr,PRN:cough,Instr:not to exceed 6 doses/day, Pharmacy: [facility] #[id number] [External Rx] 2. Bile stasis Chronic, controlled with Welchol 625mg (2 tab) TID w/meals. New script placed, may need prior auth. Sent to [facility] pharmacy. Needs vitamin D recheck, was low last year. Lipids and A1C last year were unremarkable, recheck in 1-2 years. Ordered: colesevelam(colesevelam 625 mg oral tablet), 2 tab, Oral, TID w/ Meals, # 540 tab(s), 3 total refill(s), Maintenance, 2 tab Oral TID w/ Meals, Pharmacy: [facility] [Not filled] Orders: Vitamin D 25-Hydroxy [id number] Future Scheduled TestsLaboratoryCreatinine Level 11/07/24 02/13/2025 [id number] [facility] and [facility] Extracted from:Title : Imms Note Author: LORENZA HUTCHINS, EMT Date: 02/04/25 SCREENING CHECKLIST FOR CONTRAINDICATIONS TO VACCINES FOR ADULTS (Model based on DD Form 311April 2024) Patient presents to clinic to receive vaccines recommended per ACIP/CDC guideline standing orders (that are reviewed and approved by [facility]). Patient read the following screening information and truthfully answered all of the required questions. Questions answered YES required further explanation, but are not necessarily a contraindication to vaccination. There were no contraindications to vaccines provided in clinic today. Routine Immunization Screening Questionnaire: Adult (using DD Form 311April 2024 Model) 1. Are you sick today?No 2. Have you ever had a serious reaction after receiving a vaccination?No 3. Do you have allergies to medication, food, a vaccine component, or latex?No 4. Have you had a seizure or brain or other nervous system problem?No 5. Have you had a health problem involving heart, lung (e.g. asthma), kidney, or metabolic disease (e.g., diabetes), anemia, or other blood disorder?No 6. Do you, or a close family member, have cancer, leukemia, HIV/AIDS, or any other immune system problems?No 7. In the past 3 months, have you taken medications that weaken your immune system, such as prednisone or other steroids; anticancer drugs; biologic drugs for autoimmune diseases such as rheumatoid arthritis, Crohn's disease, or psoriasis or had radiation treatments?No 8. During the past year, have you received a transfusion of blood or blood products, or been given immune (gamma) globulin, or an anti-viral drug? 9. Have you had ( or are you the candidate for) your spleen removed, or do you have sickle cell anemia?No 10. Have you ever passed out (vasovagal syncope) during or after a previous immunization or blood draw?No 11. Have you received any vaccinations in the past 4 weeks?No 12. Are you or is there a chance that you could become in the next month?Not Applicable More details of the vaccination administered can be found in the patient s Immunization History under the Immunizations tab. Diagnosis: Encounter for immunization Comment: Other status: influenza vaccine (Fluzone High-Dose) [65 yr+] [id number] PF Prefilled Syringe IM suspension; 0.5 mL, IntraMuscular, Suspension-Injection, Vaccine, First Dose: 02/04/2025 09:54:00 BOTTOM CRANE OPERATOR, 02/04/2025 09:54:00 BOTTOM CRANE OPERATOR (Completed) by JD MANN MD, Pediatrics, Allergy Imadm Prq Id Subq/Im Njxs 1 Vaccine [id number]; 02/04/2025 09:53:00 BOTTOM CRANE OPERATOR, Encounter for immunization (Completed) by JD MANN MD, Pediatrics, Allergy End of Orders Extracted from:Title: [facility]- acute URI, med refill Author: TALAT CARROLL DO Date: 05/13/23 1. Acute URI (upper respiratory infection) Acute, afebrile, VS stable. Likely viral infection, home COIVD test neg but could be COVID, flu, or common cold. Recommended urgent care for testing if desired, otherwise OTC treatments can suffice. Will prescribe Afrin for congestion- cautioned on 3 days of use. Will prescribe decongestant/antitussive. Sent to [facility] in [place]. Follow up as needed Ordered: oxymetazoline nasal(Afrin 0.05% nasal spray), 2 spray(s), Nostril-Both, BID, # 15 mL, 0 total refill(s), Maintenance, 2 spray(s) Nostril-Both BID, Pharmacy: [facility] #[id number] [External Rx] dextromethorphan-guaifenesin(dextr omethorphan-guaifenesin 10 mg-100 mg/5 mL oral liquid), 5 mL, Oral, every 4 hr, PRN cough, not to exceed 6 doses/day, # 300 mL, 0 total refill(s), Maintenance, 5 mL Oral every 4 hr,PRN:cough,Instr:not to exceed 6 doses/day, Pharmacy: [facility] #[id number] [External Rx] 2. Bile stasis Chronic, controlled with Welchol 625mg (2 tab) TID w/meals. New script placed, may need prior auth. Sent to [facility] pharmacy. Needs vitamin D recheck, was low last year. Lipids and A1C last year were unremarkable, recheck in 1-2 years. Ordered: colesevelam(colesevelam 625 mg oral tablet), 2 tab, Oral, TID w/ Meals, # 540 tab(s), 3 total refill(s), Maintenance, 2 tab Oral TID w/ Meals, Pharmacy: [facility] [Not filled] Orders: Vitamin D 25-Hydroxy [id number] Future Scheduled TestsLaboratoryCreatinine Level 11/07/24 02/13/2025 Unknown Organization Plan of Care List of future care activities from Department of Veterans Affairs facilities. Additional future care activities may be listed in the Assessment and Plan section. Date/Time Care Activity Care Activity Detail Facili ty 02/25/2025 AMBULATORY - MEDICINE AMBULATORY - MEDIC[facility] Functional Status Combined list of recent functional and cognitive assessments recorded at Department of Defense and Veterans Affairs (VA).VA Functional Bruin Measurement (FIM) Scale: 1 = Total Assistance (Subject = 0% +), 2 = Maximal Assistance (Subject = 25% +), 3 = Moderate Assistance (Subject = 50% +), 4 = Minimal Assistance (Subject = 75% +), 5 = Supervision, 6 = Modified Bruin (Device), 7 = Complete Bruin (Timely, Safely). Assessment Date/Time Source Assessment Type Assessment Skill Assessment Score Assessment Details No data available for this section
--- OUTSIDE RECORDS SUMMARY | 2025-02-13 00:41 | XMS_ITS | Clinical Summary ---
Author Organization [facility] Address [address] [place] [address] Care Team Providers Care Airborne Operations Superintendent Name Role Phone Jhony Ramos MD Primary Care Provider [phone] Allergies No known active allergies Medications Azelastine [...] Department Care Team Description 12/22/2024 6:43 AM X RAY INSPECTOR - 12/22/2024 11:59 PM X RAY INSPECTOR Hospital Encounter [facility] [place] [address] Natasha Land MD Discharge Disposition: Home or [...] 115.2 kg (254 lb) 04/17/2020 2:49 PM X RAY INSPECTOR Height 175.3 cm (5' 9) 04/17/2020 2:49 PM X RAY INSPECTOR Body Mass Index 37.51 04/17/2020 2:49 PM X RAY INSPECTOR Plan of Treatment Health Maintenance Due Date [...] ABD WWO CON Routine 12/22/2024 7:38 AM X RAY INSPECTOR Liver lesion Abnormal finding on imaging of liver from Last 3 Months Results * MRI ABD WWO CON (12/22/2024 7:38 AM X RAY INSPECTOR) Anatomical Region Laterality Modality Abdomen Magnetic Resonan ce 12/30/2024 7:03 PM X RAY INSPECTOR Impressions 12/30/2024 7:19 PM X RAY INSPECTOR IMPRESSION: 1. No significant change in hepatic cysts dating back to 2020. No further imaging follow-up is indicated. 2. Hepatic steatosis. 3. Hepatosplenomegaly. Referred By: NATASHA LAND Interpreted By: Nanda Lund DO, 12/30/2024 7:03 PM Narrative 12/30/2024 7:19 PM X RAY INSPECTOR [facility] [address] [place], [place] [address] MRI ABD WWO CON: 12/22/2024 6:58 AM [...] hernia Procedure Note Nanda Lund, - 12/30/[address] [address] MRI ABD WWO CON: 12/22/2024 6:58 AM [...] Nanda Lund DO, 12/30/2024 7:03 PM us Natasha Land MD MRI Final Result from Last 3 Months Insurance MEDICARE [facility] Care Teams Airborne Operations Superintendent Relationship Specialty Start Date End Date Jhony Ramos MD [address] [facility] [address] [place] [address] PCP - General FAMILY PRACTICE 03/05/20
[2025-02-13] MEDS: KETOROLAC 15 MG/ML VIAL (*BKC) IV PUSH (06:50)
[2025-02-13] MEDS: ACETAMINOPHEN 500 MG TABLET 1000 MG PO (06:50)
[2025-02-13] MEDS: LACTATED RINGERS 1,000 ML 30 ML IV CONT ×2 (06:50→09:52)
--- NOTE | 2025-02-13 07:03 | WPDHPUPDATE1 ---
History and Physical Update Update Date/Time: 02/13/25 07:03 History and Physical has been reviewed, including an updated exam of the patient. There are NO changes in the patient's condition. Risks, benefits, and alternatives have been discussed and questions answered. Patient agrees to proceed with procedure.
--- NOTE | 2025-02-13 07:17 | WPDANESEPPF ---
Anes - Initial Pre Proc Eval Procedure: Operation Date: 02/13/25 07:30 Proposed Procedures p Robotic Assisted Incisional Hernia Repair with Mesh - Dagoberto Villa MD Date/Time: 02/13/25 07:17 Surgeon: Dagoberto Villa MD Pre Op Diagnosis: Recurrent incisional hernia Patient Data Age: 64 Gender: M Height: 1.75 m Weight: 114.8 kg Last Vital Signs Temp 36.2 C L 02/13/25 06:50 Pulse 79 02/13/25 06:50 Resp 16 02/13/25 06:50 BP 166/87 H 02/13/25 06:50 Pulse Ox 98 02/13/25 06:50 O2 Del Method Room Air 02/13/25 06:50 Allergies Allergy/AdvReac Type Severity Reaction Status Date / Time No Known Allergies Allergy Verified 02/13/25 07:01 Home Medications ?Medication ?Instructions ?Recorded ?Confirmed ?Type cetirizine 10 mg capsule (All Day 10 mg PO HS PRN allergy symptoms 12/03/24 12/03/24 History Allergy (cetirizine)) colesevelam 625 mg tablet (WelChol) 1,250 mg PO TID 12/03/24 02/13/25 History esomeprazole magnesium 40 mg 40 mg PO DAILY 12/03/24 02/13/25 History capsule,delayed release (Nexium) glucosamine-chondroitin 250 mg-200 2 tablet PO BID 12/03/24 02/13/25 History mg tablet lactobacillus combination no.4 3 3,000 mmu cells PO DAILY 12/03/24 02/13/25 History billion cell capsule (Probiotic) latanoprost 0.005 % eye drops 1 drp EACH EYE HS 12/03/24 12/03/24 History multivitamin with minerals-folic 1 tablet PO DAILY 12/03/24 02/13/25 History acid 400 mcg-lycopene 370 mcg tablet (One-A-Day Men's 50 Plus) timolol 0.5 %-bimatoprost 0.01 % 1 drp ophthalmic (eye) BID 12/03/24 02/13/25 History eye drops vitamins-lipotropics tablet 1 tablet PO TID 12/03/24 02/13/25 History Patient hx anesthesia problems: none Family hx anesthesia problems: none Results Review: All pre-operative results and documents have been reviewed as part of the pre-operative evaluation. 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 Informed Consent: The patient's anesthetic plan and its attendant risks and benefits were discussed with the patient/family/POA. Questions were solicited and answers provided to the satisfaction of the patient/family/POA.
[2025-02-13] MEDS: ceFAZolin 2 GM in SODIUM CHLORIDE 0.9% IV 50 ML 100 ML IVPB (07:30)
--- NOTE | 2025-02-13 07:40 | W.PM.PROC2 ---
Procedure Note - Detailed Date of Procedure 02/13/25 Pre-op Diagnosis Recurrent incisional hernia Post-op Diagnosis Same Procedure Performed Robotic laparoscopic repair recurrent incisional hernia with mesh Surgeon Dagoberto Villa MD [employer] Operator Jarvis ENGLE Anesthesia General and Local Indications Patient was having some lower abdominal pain and has a sizable umbilical hernia. He had a previous umbilical hernia repaired at the same time as laparoscopic cholecystectomy. The overlying skin had some dusky coloration. Patient is taken to surgery now for repair. Findings Umbilical hernia with 2 cm defect Description of Procedure The patient was taken to surgery and induced into general anesthesia. The abdomen is prepped and draped. He had a bump under his left hip and the table was flexed in the middle. Trocars were placed in the usual fashion starting with an applied Medical 5 mm optical trocar in the left subcostal position. After adequate insufflation, camera was placed and the 2 left-sided robotic trocars were then placed under direct visualization. The camera was moved and the 5 mm trocar was replaced with another 8 mm trocar under direct visualization. The robotic arms were brought into the field. The camera was docked and targeted. The working instruments were positioned appropriately. The surgeon then went to the robotic console. The fatty contents of the umbilical her hernia were gradually reduced. Properitoneal fat in the midline of the abdomen was carefully dissected away in both the cephalad and caudad direction such that applied mesh would be in direct apposition to the posterior abdominal wall. The falciform ligament was likewise dissected and partially taken down from the anterior abdominal wall. I then used 0 Stratafix suture and closed the defect. 10 x [address] hernia mesh patch was then introduced into the abdominal cavity through 1 of the trocars. The mesh was unrolled and positioned appropriately on the anterior abdominal wall. Since the needle from the Stratafix and some residual suture were passed through the center of the mesh and the mesh was gradually worked up so that it was snug to the previous her hernia defect closure. I then used running 2 0 V lock suture and sutured the mesh to the anterior abdominal wall under a mild degree of tension. This went well and the mesh appeared to be in very good position and centered over the hernia repair. I then used residual V lock as well as the residual Stratafix suture and, in running fashion, suture the midportion of the mesh to the anterior abdominal wall to facilitate better fixation. We then removed all needles and any residual suture. Instruments were removed and the robot was undocked. CO2 was evacuated from the abdominal cavity. Skin wounds were closed with subcuticular 4-0 Monocryl skin suture. The wounds were dressed with Exofin surgical adhesive. Patient was awakened and taken to recovery in good condition. Sponge and needle counts were correct x2. Implants Ventralight ST hernia mesh patch, 15 x 10 cm Estimated Blood Loss -5 Drains No Packing No Pathology None sent Complications None Condition Stable Disposition PACU [facility] Billing Surgery - Charge Forward: Surgery Billing (Robotic laparoscopic repair recurrent incisional hernia with 2 cm defect, with mesh)
[2025-02-13] MEDS: BUPIVACAINE/EPINEPHRINE 0.5% 30 ML VIAL INFILTRATE (08:09)
[2025-02-13] MEDS: fentaNYL CITRATE INJ (*CRX) 100 MCG/2 ML VIAL 25 MCG IV PUSH ×2 (10:21→10:36)
[2025-02-13] MEDS: oxyCODONE HCL (*CRX) 5 MG TAB IR PO (11:10)
== END 2025-02-13 11:51 | disposition home or self-care (01) ==
PROVIDERS: PCP Emergency Medicine; Visit Provider Surgery
PROC: (CPT 49613; principal; 2025-02-13 07:30)
DX: K43.2 Incisional hernia without obstruction or gangrene (principal); E66.9 Obesity, unspecified; Z68.37 Body mass index [BMI] 37.0-37.9, adult
CPT/HCPCS: 49613; S2900; J0690; A9270; C1781; J1100; J1885; J2003; J2250; J2405; J2704; J3010; J7030; J7120